=== PATIENT | male | born 1985 | race Caucasian/White ===

== ENCOUNTER 2017-05-14 21:25 | Inpatient (IN) | payer OTHER ==
[~2017-05-14] VITALS: Ht 177.8 cm; Wt 66.5 kg
[2017-05-14 23:05] VITALS: BP 114/82; PULSE 66; RESP 16; TEMP 97.5; O2SAT 97
[2017-05-14] MEDS ORDERED: ACETAMINOPHEN 325 MG TAB PO PRN (23:45)
[2017-05-14] MEDS ORDERED: ALUMINUM/MAGNESIUM/SIMETH 30 ML CUP PO PRN (23:45)
[2017-05-14] MEDS ORDERED: MAGNESIUM HYDROXIDE SUSP 30 ML CUP PO PRN (23:45)
[2017-05-14] MEDS ORDERED: hydrOXYzine HCL 50 MG TAB PO PRN (23:45)
[2017-05-15 05:54] VITALS: BP 114/63; PULSE 72; RESP 18; TEMP 97.6; O2SAT 98
[2017-05-15] MEDS: NICOTINE 21 MG/24 HR PATCH T-DERMAL SCH (09:00)
--- NOTE | 2017-05-15 12:47 | HHI.HP ---
Provisional Diagnosis Admission Date May 14, 2017 at 23:00 [place] I. 1. Brief psychotic disorder Rule out primary psychotic disorder such as schizophrenia Rule out mood disorder with psychotic features Rule out substance-induced psychotic disorder Rule out psychotic disorder due to general medical condition 2. Cannabis abuse [place] II. Deferred Certification of Person's Competence To Provide Express and Informed Consent I have personally examined Homero Guillaume , a person being served at [facility] on, May 15, 2017 12:47. Express and informed consent means consent voluntarily given in writing, by a competent person, after sufficient explanation and disclosure of the subject matter involved to enable the person to make a knowing and willful decision without any element of force, fraud, deceit, duress, or other form of constraint or coercion. This person is 18 years of age or older, is not now known to be incompetent to consent to treatment with a guardian advocate, and does not have a health care surrogate or proxy currently making medical treatment decisions. I have found this person to be one of the following: [] Competent to provide express and informed consent, as defined above, for voluntary admission to this facility and is competent to provide express and informed consent for treatment. He/she has the consistent capacity to make well reasoned, willful, and knowing decisions concerning his or her medical or mental health treatment. The person fully and consistently understands the purpose of the admission for examination/placement and is fully capable of personally exercising all rights assured [place] [x] Incompetent to provide express and informed consent to voluntary admission, and this is incompetent to provide express and informed consent to treatment. The person must be transferred to involuntary status and a petition for a guardian advocate filed with the Circuit Court. [] Refusing to provide express and informed consent to voluntary admission but is competent to provide express and informed consent for treatment. The person must be discharged or transferred to involuntary status. Form shall be completed within 24 hours of a person's arrival at the receiving facility and filed in the clinical record of each person: 1. Admitted on a voluntary basis 2. Permitted to provide express and informed consent to his/her own treatment 3. Allowed to transfer from involuntary to voluntary status 4. Prior to permitting a person to consent to his or her own treatment after having been previously found incompetent to consent to treatment. History of Present Illness Capacity: Lacks Capacity Psych Chief Complaint: Psychosis HPI Mr. Guillaume is a 31-year-old male with a reported history of ADHD who presents in transfer from [facility] under a Pete act. Documentation from outside hospital reviewed. 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 He also allegedly threatened to kill President Charleen. Apparently there was some concern initially that the patient's altered mental status was medical in nature and so it appears he was briefly admitted to the medical floor at [place], although medical workup there was apparently negative. Reviewing our electronic medical record, it appears this is patient's first visit to [place]. Patient seen and examined with nurse. Chart reviewed. Case discussed with nursing staff. On my examination today, the patient presents with pressured speech and loosening of associations. He repeatedly says, "I'm cleared." He says that he has "thought so clear that no one around me could think clearly enough. If you won't think clear, I'll damn you to Hell!" Affect is labile, and patient grows tearful and when asked why he is crying he says. "I'm sad for everybody else. Their pain and suffering at the hands of fucking demons. No one will listen to me." Patient reports visual hallucinations of demons and auditory hallucinations of "henry voices." He cannot tell me what these voices are saying. Grandiosity is present. He is somewhat intrusive and disinhibited. He denies suicidal or homicidal ideation but seems unreliable to contract for safety. The remainder of the psychiatric ROS is negative. The patient has no physical complaints at this time. Past psychiatric history: The patient reports a previous diagnosis of ADHD. He says that he has seen psychiatrists in the past but "they all cleared me." He denies any history of psychiatric admissions or suicide attempts. Given the patient's severely decompensated psychiatric state, I have obtained collateral information from his father Daryl over the phone. Father notes that the patient has been "spiraling" downhill for some time, although it is difficult to quantify exactly how long. He says that the patient has grown increasingly withdrawn and spends most of his time in his room playing video games. Father notes that recently the patient was kicked off of the [employer] site because he was "talking bad." Following that episode the patient "got delusional" and was apparently ruminating on being the greatest game player in the world. Father notes that sleep is poor and the patient has been losing weight. He notes that the patient as fairly apathetic. He notes that the patient has a history in childhood of oppositional defiant disorder and ADHD. There is no family history of mental illness. He reports that the patient has no known history of suicidal or violent behavior. He does note that the patient had a history of some sort of cardiac issue after he was given amoxicillin for strep throat. Father is willing to serve as health care surrogate. Review of Systems ROS Limitations: Psychotic, Poor Historian Except as stated in HPI: all other systems reviewed are Neg Past Psych History Psychological trauma history No reported trauma history to me. Violence risk - others (6 mos) Indeterminate. Patient is psychotic and unpredictable. Violence risk - self (6 mos) Indeterminate. Patient is psychotic and unpredictable. Substance Abuse History Drugs/Alcohol past 12 months Patient admits to regular use of cannabis. He denies any other substance use including synthetics. Past Family Social History Coded Allergies: Amoxicillin (Unverified Allergy, Unknown, 05/15/17) Penicillins (Unverified Allergy, Unknown, 05/15/17) Past Medical History Patient reports a history of congestive heart failure, perhaps alluding to the episodes described by his father above. Current Medications Medications (Trade) Dose Ordered Sig/Jason Route Start Time Stop Time Status Last Admin (Atarax) 50 mg Q6H PRN PO 05/14/17 23:45 (Benadryl) 50 mg HS PRN PO 05/14/17 23:45 (Benadryl Inj) 50 mg HS PRN IM 05/14/17 23:45 (Tylenol) 650 mg Q4H PRN PO 05/14/17 23:45 (Milk Of Magnesia Liq) 30 ml DAILY PRN PO 05/14/17 23:45 (Mag-Al Plus Susp Liq) 30 ml Q6H PRN PO 05/14/17 23:45 (Habitrol 21 Mg Patch.24 Hr) 1 patch DAILY T-DERMAL 05/15/17 09:00 Miscellaneous Information 1 HS T-DERMAL 05/15/17 21:00 Family Psych History Patient denies any family psychiatric history Social History Patient reports that he lives with his parents and 2 pet dogs. He is high school educated. He is single with no children. He does not work. He says that he endeavored to join the but that he was rejected. He denies any legal history. He denies any access to guns or firearms. Patient's Strengths (min. 2) In a monitored setting. Supportive parents. Physical Exam Physical examination was completed by ED provider at outside hospital. On my examination today, the patient appears to be in no acute physical distress. No motor abnormalities noted. Laboratories and vitals signs reviewed: Vital Signs Vital Signs Date Time Temp Pulse Resp B/P (MAP) Pulse Ox O2 Delivery O2 Flow Rate FiO2 05/15/17 05:54 97.6 72 18 114/63 (80) 98 Lab Results Laboratories from outside hospital reviewed: CBC unremarkable, BMP unremarkable , urinalysis revealed 2+ bilirubin and 1+ ketones but otherwise unremarkable, urine toxicology positive for cannabinoids, LFTs within normal limits, head CT within normal limits, chest x-ray no acute cardiopulmonary process, EKG sinus tachycardia with a QTC of 392 ms. Item Value Date Time Sodium Level 140 MEQ/L 05/15/17 1150 Potassium Level 3.6 MEQ/L 05/15/17 1150 Chloride Level 107 MEQ/L 05/15/17 1150 Carbon Dioxide Level 25.7 MEQ/L 05/15/17 1150 Blood Urea Nitrogen 10 MG/DL 05/15/17 1150 Creatinine 0.85 MG/DL 05/15/17 1150 Estimat Glomerular Filtration Rate 107 ML/MIN 05/15/17 1150 Random Glucose 98 MG/DL 05/15/17 1150 Mental Status Examination Appearance: Disheveled Consciousness: Alert Orientation: Person (at least. Psychosis interferes with mental status testing ) Motor Activity: Normal gait Speech: Pressured Language: Perseveration Fund of Knowledge: Adequate Attention and Concentration: Easily Distracted Memory: Unremarkable Mood: Irritable Affect: Labile Thought Process & Associations: Loose associations Thought Content: Bizarre thinking, Hallucinations, Delusional Hallucination Type: Auditory (of henry voices), Visual (of devils) Delusion Type: Other (grandiose with judaism overtones) Suicidal Ideation: No (unreliable to contract for safety) Suicidal Plan: No Suicidal Intention: No Homicidal Ideation: No (unreliable to contract for safety) Homicidal Plan: No Homicidal Intention: No Insight: Poor Judgment: Poor Assessment & Plan Problem List: (1) Brief psychotic disorder ICD Codes: F23 - Brief psychotic disorder (2) Cannabis abuse ICD Codes: F12.10 - Cannabis abuse, uncomplicated Assessment & Plan 31-year-old male with psychiatric history as detailed above who presents in transfer from outside hospital under Pete act. On my examination today, the patient presents as floridly psychotic with audiovisual hallucinations and judaism/grandiose delusions. There does appear to be some degree of affective component and so a mood disorder with psychotic features is in the differential in addition to a primary psychotic disorder. Psychotic disorder due to a substance is certainly a possibility as the patient has been abusing cannabis, and psychosis due to a general medical condition and has not been definitively ruled out. However, father's report of prodromal involution is certainly concerning for an incipient primary psychotic illness. Patient's reported history of cardiac issues will require careful assessment for initiation of an antipsychotic. Patient requires psychiatric hospitalization at this time for safety, observation and stabilization. Admit inpatient. Involuntary status. I've completed first opinion. Consult for second opinion. Request healthcare surrogate and guardian advocate. I will consult the hospitalist to pursue a medical workup of patient's cardiac status to ensure that it is safe to start an antipsychotic medication; case d/w Dr. Clinton. I will check an updated EKG. Check TSH, vitamin D, vitamin B12, RPR, HIV, PASTORA, ESR, MRI brain w/ and w/o contrast as part of first break psychosis workup. Ativan as needed for anxiety, Benadryl as needed for EPS or sleep. Vitals every shift. Counselor to see. Disposition planning. Estimated length of stay: 5-7 days. Discharge Planning Pending psychiatric stabilization Request HC Surrog/Guard Advoc?: Yes David Stoll MD May 15, 2017 12:47
[2017-05-15 13:04] LABS: ANION GAP 7 MEQ/L (5-15); BICARBONATE 25.7 MEQ/L (21.0-32.0); BLOOD UREA NITROGEN 10 MG/DL (7-18); CHLORIDE 107 MEQ/L (98-107); GLOMERULAR FILTRATION RATE 107 ML/MIN (>89); POTASSIUM 3.6 MEQ/L (3.5-5.1); SODIUM (NA) 140 MEQ/L (136-145)
[2017-05-15 13:06] LABS: HDL CHOLESTEROL 41.7 MG/DL (40.0-60.0); LDL CHOLESTEROL 126 MG/DL (0-99)
[2017-05-15 14:28] LABS: HEMOGLOBIN A1a 1.1 %; HEMOGLOBIN A1b 1.5 %; HEMOGLOBIN LA1C 2.1 %; HEMOGLOBIN P3 3.7 %
--- NOTE | 2017-05-15 16:26 | RADRPT ---
EXAM DATE/TIME: 05/15/2017 16:00 [place] COMPARISON: No previous studies available for comparison. INDICATIONS : Psychosis. MEDICAL HISTORY : None. SURGICAL HISTORY : Nose repair. ENCOUNTER: Initial ACUITY: 3 day PAIN SCORE: 0/10 LOCATION: Head. TECHNIQUE: Multiplanar, multisequence MRI of the brain was performed without contrast. FINDINGS: CEREBRUM: The ventricles are normal for age. No evidence of midline shift, mass lesion, hemorrhage or acute in farction. No extraaxial fluid collections are seen. The pituitary gland and suprasellar cistern are normal in configuration. WHITE MATTER: No significant signal abnormalities are seen in the white matter. POSTERIOR FOSSA: The cerebellum and brainstem are intact. The 4th ventricle is midline. The cerebellopontine angle is unremarkable. The cerebellar tonsils are normal in position. DIFFUSION IMAGING: No focal areas of restricted diffusion are seen. No evidence of acute infarction. EXTRACRANIAL: The visualized portions of the orbits and paranasal sinuses are unremarkable. CONCLUSION: 1. No evidence of acute intracranial pathology. No masses are identified. David Garcia MD on May 15, 2017 at 16:23 Board Certified Radiologist. This report was verified electronically.
[2017-05-15 18:09] VITALS: BP 139/86; PULSE 89; RESP 18; TEMP 98; O2SAT 98
--- NOTE | 2017-05-15 18:57 | EKG ---
Date Performed: 05/15/2017 Time Performed: 17:45:37 PTAGE: 31 years EKG: Sinus rhythm MODERATE INTRAVENTRICULAR CONDUCTION DELAY BORDERLINE ECG NO PREVIOUS TRACING DOCTOR: Juan Ramon Walters Interpretating Date/Time 05/15/2017 18:56:26
--- NOTE | 2017-05-15 19:01 | PD.CONS ---
[facility] By [facility] Stoll Reason for Consult Evaluation of patient's claim of history of CHF. Primary Care Physician No Primary Care Physician Diagnoses: History of Present Illness This is a 31-year-old male with reported history of ADHD who presents to [facility] as a transfer from [facility] ([place], [place]) under [employer] act. Documentation from outside hospital was reviewed. 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 He also allegedly threatened to kill braden ames. Apparently there was some concern initially that the patient's altered mental status was medical in nature and it appears that he was briefly admitted to the medical floor at [place], although apparently workup was negative. The patient states that when he was younger he had a strep throat and as a consequence heart failure for which he had a "catheter" placed. Discussed the case with Dr. stoll was requesting a cardiac evaluation given that the catcher's thinking was started on antipsychotic medication. Patient denies any chest pain, shortness of breath, the patient also complains any palpitations, leg edema or weight gain. Patient denies dysuria, abdominal pain, nausea and vomiting. Review of Systems As per history of present illness, other systems reviewed by me and negative Past Family Social History Allergies: Coded Allergies: Penicillins (Unverified Allergy, Unknown, 05/15/17) amoxicillin (Unverified Allergy, Unknown, 05/15/17) Past Medical History ADHD Past Surgical History Nasal repair after a broken nose. Reported Medications None Active Ordered Medications Current Medications Medications (Trade) Dose Ordered Sig/Jason Route Start Time Stop Time Status Last Admin (Benadryl) 50 mg HS PRN PO 05/14/17 23:45 (Benadryl Inj) 50 mg HS PRN IM 05/14/17 23:45 (Tylenol) 650 mg Q4H PRN PO 05/14/17 23:45 (Milk Of Magnesia Liq) 30 ml DAILY PRN PO 05/14/17 23:45 (Mag-Al Plus Susp Liq) 30 ml Q6H PRN PO 05/14/17 23:45 (Habitrol 21 Mg Patch.24 Hr) 1 patch DAILY T-DERMAL 05/15/17 09:00 Miscellaneous Information 1 HS T-DERMAL 05/15/17 21:00 (Ativan) 1 mg Q6H PRN PO 05/15/17 14:15 (Ativan Inj) 1 mg Q6H PRN IM 05/15/17 14:15 Family History The patient's father has some type of kidney issue and they status post kidney transplantation. Patient's mother had hypertension. Social History The patient smokes one pack per day. States he drinks alcohol occasionally. The patient states that he smokes marijuana "24-7" Physical Exam Vital Signs Vital Signs Date Time Temp Pulse Resp B/P (MAP) Pulse Ox O2 Delivery O2 Flow Rate FiO2 05/15/17 18:09 98.0 89 18 139/86 (103) 98 05/15/17 05:54 97.6 72 18 114/63 (80) 98 05/14/17 23:05 97.5 66 16 114/82 (93) 97 Physical Exam GENERAL: This is a well-nourished, well-developed patient, in no apparent distress. SKIN: No rashes, ecchymoses or lesions. Cool and dry. HEAD: Atraumatic. Normocephalic. No temporal or scalp tenderness. EYES: Pupils equal round and reactive. Extraocular motions intact. No scleral icterus. No injection or drainage. ENT: Nose without bleeding, purulent drainage or septal hematoma. Throat without erythema, tonsillar hypertrophy or exudate. Uvula midline. Airway patent. NECK: Trachea midline. No JVD or lymphadenopathy. Supple, nontender, no meningeal signs. CARDIOVASCULAR: Regular rate and rhythm without murmurs, gallops, or rubs. RESPIRATORY: Clear to auscultation. Breath sounds equal bilaterally. No wheezes , rales, or rhonchi. GASTROINTESTINAL: Abdomen soft, non-tender, nondistended. No hepato-splenomegaly , or palpable masses. No guarding. MUSCULOSKELETAL: Extremities without clubbing, cyanosis, or edema. No joint tenderness, effusion, or edema noted. No calf tenderness. Negative Homans sign bilaterally. NEUROLOGICAL: Awake and alert. Cranial nerves II through XII intact. Motor and sensory grossly within normal limits. Five out of 5 muscle strength in all muscle groups. Normal speech. Laboratory Laboratory Tests Test 05/15/17 11:50 Blood Urea Nitrogen 10 Creatinine 0.85 Random Glucose 98 Calcium Level 9.3 Sodium Level 140 Potassium Level 3.6 Chloride Level 107 Carbon Dioxide Level 25.7 Anion Gap 7 Estimat Glomerular Filtration Rate 107 Hemoglobin A1c 5.1 Triglycerides Level 83 Cholesterol Level 184 LDL Cholesterol 126 HDL Cholesterol 41.7 Cholesterol/HDL Ratio 4.41 Result Diagram: 05/15/17 1150 Imaging Last Impressions Brain MRI 05/15/17 0000 Signed Impressions: Service Date/Time: May 16:00 - CONCLUSION: 1. No evidence of acute intracranial pathology. No masses are identified. David Garcia MD Assessment and Plan Problem List: (1) Brief psychotic disorder ICD Code: F23 - Brief psychotic disorder (2) Cannabis abuse ICD Code: F12.10 - Cannabis abuse, uncomplicated (3) Smoking addiction ICD Code: F17.200 - Nicotine dependence, unspecified, uncomplicated Assessment and Plan Patient presents with brief psychotic disorder. Agree with workup for post by psychiatry including MRI which was negative, B12, RPR, HIV, PASTORA, ESR. Continue management upper psychotic disorders as per psychiatry. Advised on smoking cessation. Discussed the case with Dr. Nawaf abebe regarding past history of cardiac disease. Reviewed by me shows sinus rhythm at 79 bpm without any major ST-T changes suggestive of active ischemia. QTC is 394. There is a moderate intraventricular conduction delay. Will order 2-D echocardiogram. Encourage ambulation for DVT prophylaxis. Offered a nicotine patch, however patient refused. Code Status Full code. Discussed Condition With Patient, RN. Idris Michele MD May 15, 2017 19:01
[2017-05-15] MEDS: REMOVE OLD NICOTINE PATCH T-DERMAL SCH ×2 (20:56→21:00)
[2017-05-15] MEDS: diphenhydrAMINE HCL 50 MG/ML VIAL - HS PRN IM (23:24)
[2017-05-15] MEDS: LORazepam 2 MG/ML VIAL IM PRN (23:24)
[2017-05-16 06:16] VITALS: BP 125/69; PULSE 98; RESP 16; TEMP 97.4; O2SAT 99
[2017-05-16] MEDS: NICOTINE 21 MG/24 HR PATCH T-DERMAL SCH (08:09)
--- NOTE | 2017-05-16 11:00 | HHI.PYPN ---
Subjective Chief Complaint: Psychosis Remarks Patient seen and examined with counselor and nurse. Chart reviewed. Case discussed in treatment team. Nursing staff reports that the patient was trying to throw chairs yesterday evening and was medicated with Ativan and Benadryl. On my examination today, the patient is calm but remains psychotic. His affect is labile. His speech remains pressured. He says that he is "here for training to be one of God's disciples." He continues to say he will refuse any medications and says that if we keep him on the unit he will refuse to eat. He tells me that he was just trying to move the chairs, not throw them, although staff assures me that they received in report that he was quite agitated and trying to throw the chairs. No physical complaints. Review of Systems ROS Limitations: Psychotic, Poor Historian Except as stated in HPI: all other systems reviewed are Neg Mental Status Examination Appearance: Disheveled Consciousness: Alert Orientation: Person, Place Motor Activity: Other (no motor abnormalities noted) Speech: Pressured Language: Perseveration Fund of Knowledge: Adequate Attention and Concentration: Easily Distracted Memory: Unremarkable Mood: Irritable Affect: Labile (ongoing) Thought Process & Associations: Loose associations Thought Content: Bizarre thinking, Hallucinations, Delusional Hallucination Type: Other (remains frankly internally stimulated) Delusion Type: Other (grandiose with judaism overtones, ongoing) Suicidal Ideation: No (unreliable to contract for safety) Suicidal Plan: No Suicidal Intention: No Homicidal Ideation: No (unreliable to contract for safety) Homicidal Plan: No Homicidal Intention: No Insight: Poor Judgment: Poor Results Labs Last Impressions Brain MRI 05/15/17 0000 Signed Impressions: Service Date/Time: May 16:00 - CONCLUSION: 1. No evidence of acute intracranial pathology. No masses are identified. David Garcia MD Item Value Date Time Erythrocyte Sedimentation Rate 1 mm/hr 05/16/17 1032 Ammonia 13 MCMOL/L 05/16/17 1032 Vitamin B12 Level 658 PG/ML 05/16/17 1032 Thyroid Stimulating Hormone 3rd Gen 1.280 uIU/ML 05/16/17 1032 HIV (1&2) Antibody NEGATIVE 05/16/17 1032 Labs and studies impressions reviewed. First break psychosis workup so far negative. PASTORA and RPR are still pending. Vitals/IOs Vital Signs Date Time Temp Pulse Resp B/P (MAP) Pulse Ox O2 Delivery O2 Flow Rate FiO2 05/16/17 06:16 97.4 98 16 125/69 (87) 99 Assessment & Plan Problem List: (1) Brief psychotic disorder ICD Codes: F23 - Brief psychotic disorder (2) Cannabis abuse ICD Codes: F12.10 - Cannabis abuse, uncomplicated Assessment & Plan Psychotic state is not improving as time from last substance use increases. I remain concerned for primary psychotic illness or perhaps mood disorder with psychotic features as there does seem to be an affective component to his illness. Awaiting medical clearance/echocardiogram for initiation of an antipsychotic. I will start Depakote DR 500 mg twice daily in the meantime to try to lessen patient's irritability and stabilize his mood, although I fear he will simply refuse this medication. LFTs and platelets were checked at outside hospital and were unremarkable. If the patient does accept this medication, plan to check a Depakote and ammonia level after the appropriate interval. Weekend rounding physician: if medical clearance is obtained, please initiate antipsychotic PO/IM backup. Continue to monitor on high acuity unit. Continue other medications and care as ordered. Justification for Cont. Inpt. Med changes. Impairment in reality construction. Concern for impairment and safety. High risk for decompensation in less restrictive environment. Discharge Planning Pending psychiatric stabilization. Request HC Surrog/Guard Advoc?: Yes David Stoll MD May 16, 2017 11:00
--- NOTE | 2017-05-16 11:45 | PD.PSY.CON ---
Provisional Diagnosis Admission Date May 14, 2017 at 23:00 [place] I. 1. Brief psychotic disorder Rule out primary psychotic disorder such as schizophrenia Rule out mood disorder with psychotic features Rule out substance-induced psychotic disorder Rule out psychotic disorder due to general medical condition 2. Cannabis abuse [place] II. Deferred History of Present Illness Service Psychiatry Consult Requested By Dr. Stoll Reason for Consult second opinion Primary Care Physician No Primary Care Physician HPI Mr. Guillaume is a 31-year-old male with a reported history of ADHD who presents in transfer from [facility] under a Pete act. Documentation from outside hospital reviewed. Patient was brought in initially under a Pete act from [place] [employer] alleging that the patient would speak only of being the world's greatest sas programmer remote. He also allegedly threatened to kill President Cahrleen. Apparently there was some concern initially that the patient's altered mental status was medical in nature and so it appears he was briefly admitted to the medical floor at [place], although medical workup there was apparently negative. Reviewing our electronic medical record, it appears this is patient's first visit to [facility].Patient seen and examined with nurse. Chart reviewed. Case discussed with nursing staff. On my examination today, the patient presents with pressured speech and loosening of associations. He repeatedly says, "I'm cleared." He says that he has "thought so clear that no one around me could think clearly enough. If you won' t think clear, I'll damn you to Hell!" Affect is labile, and patient grows tearful and when asked why he is crying he says. "I'm sad for everybody else. Their pain and suffering at the hands of fucking demons. No one will listen to me." Patient reports visual hallucinations of demons and auditory hallucinations of "henry voices." He cannot tell me what these voices are saying. Grandiosity is present. He is somewhat intrusive and disinhibited. He denies suicidal or homicidal ideation but seems unreliable to contract for safety. The remainder of the psychiatric ROS is negative. The patient has no physical complaints at this time. The patient is a 31 years old man, domiciled with his parents in [place], single, unemployed, with psychiatric history of ADHD, Cannabis use disorder, denies previous psychiatric hospitalizations, denies suicidal attempts , no significant medical history, who was brought to the hospital on the Pete act due to psychotic speech and behavior. He was consulted to me for second opinion. Chart was reviewed. Case discussed with nurse in charge. As per nurses the patient has been agitated, verbally hostile, even aggressive needing ETO's. On my evaluation the patient is found sitting in the recreational area of the unit, he is calm, a little bit oppositional and irritable. He has a very flat affect and seems to be internally preoccupied and paranoid. Patient says that he needs to remain silence and isolated "because he wants to attack me ". Patient does not clarify who is "he". He also says that "He is mandating". Patient says that he has been smoking that he wanted everyday "to clear my mind". He also says that he voted for "the best president ever, Michael Villaseñor who is cleaning this [place] of [employer]". The patient denies suicidal and homicidal ideation, visual and auditory hallucinations. He is partially oriented in time and place. Review of Systems Psychiatric: COMPLAINS OF: Delusions Except as stated in HPI: all other systems reviewed are Neg Past Family Social History Coded Allergies: Penicillins (Unverified Allergy, Unknown, 05/15/17) amoxicillin (Unverified Allergy, Unknown, 05/15/17) Current Medications Medications (Trade) Dose Ordered Sig/Jason Route Start Time Stop Time Status Last Admin (Benadryl) 50 mg HS PRN PO 05/14/17 23:45 (Benadryl Inj) 50 mg HS PRN IM 05/14/17 23:45 05/15/17 23:24 (Tylenol) 650 mg Q4H PRN PO 05/14/17 23:45 (Milk Of Magnesia Liq) 30 ml DAILY PRN PO 05/14/17 23:45 (Mag-Al Plus Susp Liq) 30 ml Q6H PRN PO 05/14/17 23:45 (Habitrol 21 Mg Patch.24 Hr) 1 patch DAILY T-DERMAL 05/15/17 09:00 Miscellaneous Information 1 HS T-DERMAL 05/15/17 21:00 (Ativan) 1 mg Q6H PRN PO 05/15/17 14:15 (Ativan Inj) 1 mg Q6H PRN IM 05/15/17 14:15 05/15/17 23:24 Family Psych History Patient says that his uncle "has Alzheimer's disease Social History Patient was born and raised in [place], lives [place] with his parents, he is unemployed, single, his highest level of education is high school Patient's Strengths (min. 2) In a monitored setting. Supportive parents. Physical Exam Vital Signs Vital Signs Date Time Temp Pulse Resp B/P (MAP) Pulse Ox O2 Delivery O2 Flow Rate FiO2 05/16/17 06:16 97.4 98 16 125/69 (87) 99 Lab Results Test 05/15/17 11:50 05/16/17 10:32 Blood Urea Nitrogen 10 MG/DL Creatinine 0.85 MG/DL Random Glucose 98 MG/DL Calcium Level 9.3 MG/DL Sodium Level 140 MEQ/L Potassium Level 3.6 MEQ/L Chloride Level 107 MEQ/L Carbon Dioxide Level 25.7 MEQ/L Anion Gap 7 MEQ/L Estimat Glomerular Filtration Rate 107 ML/MIN Hemoglobin A1c 5.1 % Triglycerides Level 83 MG/DL Cholesterol Level 184 MG/DL LDL Cholesterol 126 MG/DL HDL Cholesterol 41.7 MG/DL Cholesterol/HDL Ratio 4.41 RATIO Ammonia 13 MCMOL/L Mental Status Examination Appearance: Disheveled Consciousness: Alert Orientation: Person (at least. Psychosis interferes with mental status testing ) Motor Activity: Normal gait Speech: Pressured Language: Perseveration Fund of Knowledge: Adequate Attention and Concentration: Easily Distracted Memory: Unremarkable Mood: Irritable Affect: Labile Thought Process & Associations: Loose associations Thought Content: Bizarre thinking, Hallucinations, Delusional Hallucination Type: Auditory (of henry voices), Visual (of devils) Delusion Type: Other (grandiose with jain overtones) Suicidal Ideation: No (unreliable to contract for safety) Suicidal Plan: No Suicidal Intention: No Homicidal Ideation: No (unreliable to contract for safety) Homicidal Plan: No Homicidal Intention: No Insight: Poor Judgment: Poor Assessment & Plan Problem List: (1) Brief psychotic disorder ICD Codes: F23 - Brief psychotic disorder Assessment & Plan: I have seen and examined this patient, reviewed documentation. Discussed the case with nursing charge. I completely agree with Dr. Stoll assessment and plan. Consult appreciated. (2) Cannabis abuse ICD Codes: F12.10 - Cannabis abuse, uncomplicated Assessment & Plan Estimated LOS: days Request HC Surrog/Guard Advoc?: Yes Surednra Stringer MD May 16, 2017 11:45
--- NOTE | 2017-05-16 12:06 | PD.TTN ---
Patient Problems 1. Discharge planning 2. Medication compliance 3. Knowledge deficit 4. Lack of coping skills Progress Toward Goals Provider Present: Dr. Jocelyn Stoll Provider Input: Pt will be evaluated medically and will have first psychotic break work up. An antipsychotic will be added once he has been medically evaluated as well. Psychiatric Counselors Present: NELSON Israel Psych Therapist Input: Pt appears labile, delusional, religiously preoccupied, uncooperative and disorganized. Pt struggles to remain on topic and expresses delusional content. He has been compliant with medication regiment but reports he does not feel that he needs to be. He presents with limited insight into condition and need for care as he does not feel he has any mental illlness. Coping and emotional regulation skills appear limited at this time. Group Spec/RT/OT/NEGRETE Present: PENELOPE Ott Group Spec/RT/OT/NEGRETE Input: Pt came to spirituality group yesterday but was unable to tolerate and appeared labile. Discharge Plan SMA Discharge plan will be evaluated and formulated as pt progresses on unit. Documentation Scribe: NELSON Israel Jonathan LMHC May 16, 2017 12:06
--- NOTE | 2017-05-16 17:30 | HHI.PR ---
Subjective Remarks as per RN patietn has been very emotional. Asking to be discharged. Denies cp/sob. c/o left wrist pain. Objective Vitals Vital Signs Date Time Temp Pulse Resp B/P (MAP) Pulse Ox O2 Delivery O2 Flow Rate FiO2 05/16/17 06:16 97.4 98 16 125/69 (87) 99 05/15/17 18:09 98.0 89 18 139/86 (103) 98 Result Diagram: 05/15/17 1150 Imaging Last Impressions Brain MRI 05/15/17 0000 Signed Impressions: Service Date/Time: May 16:00 - CONCLUSION: 1. No evidence of acute intracranial pathology. No masses are identified. David Garcia MD Objective Remarks GENERAL: This is a well-nourished, well-developed patient, in no apparent distress. SKIN: No rashes, ecchymoses or lesions. Cool and dry. HEAD: Atraumatic. Normocephalic. No temporal or scalp tenderness. EYES: Pupils equal round and reactive. Extraocular motions intact. No scleral icterus. No injection or drainage. ENT: Nose without bleeding, purulent drainage or septal hematoma. Throat without erythema, tonsillar hypertrophy or exudate. Uvula midline. Airway patent. NECK: Trachea midline. No JVD or lymphadenopathy. Supple, nontender, no meningeal signs. CARDIOVASCULAR: Regular rate and rhythm without murmurs, gallops, or rubs. RESPIRATORY: Clear to auscultation. Breath sounds equal bilaterally. No wheezes , rales, or rhonchi. GASTROINTESTINAL: Abdomen soft, non-tender, nondistended. No hepato-splenomegaly , or palpable masses. No guarding. MUSCULOSKELETAL: Extremities without clubbing, cyanosis, or edema. No joint tenderness, effusion, or edema noted. No calf tenderness. Negative Homans sign bilaterally. Mild left wrist tenderness to palpation. NEUROLOGICAL: Awake and alert. Cranial nerves II through XII intact. Motor and sensory grossly within normal limits. Five out of 5 muscle strength in all muscle groups. Normal speech. Medications and IVs Current Medications Medications (Trade) Dose Ordered Sig/Jason Route Start Time Stop Time Status Last Admin (Benadryl) 50 mg HS PRN PO 05/14/17 23:45 (Benadryl Inj) 50 mg HS PRN IM 05/14/17 23:45 05/15/17 23:24 (Tylenol) 650 mg Q4H PRN PO 05/14/17 23:45 (Milk Of Magnesia Liq) 30 ml DAILY PRN PO 05/14/17 23:45 (Mag-Al Plus Susp Liq) 30 ml Q6H PRN PO 05/14/17 23:45 (Habitrol 21 Mg Patch.24 Hr) 1 patch DAILY T-DERMAL 05/15/17 09:00 Miscellaneous Information 1 HS T-DERMAL 05/15/17 21:00 (Ativan) 1 mg Q6H PRN PO 05/15/17 14:15 (Ativan Inj) 1 mg Q6H PRN IM 05/15/17 14:15 05/15/17 23:24 (Depakote Dr) 500 mg BID PO 05/16/17 21:00 A/P Problem List: (1) Brief psychotic disorder ICD Code: F23 - Brief psychotic disorder (2) Cannabis abuse ICD Code: F12.10 - Cannabis abuse, uncomplicated (3) Smoking addiction ICD Code: F17.200 - Nicotine dependence, unspecified, uncomplicated (4) Left wrist pain ICD Code: M25.532 - Pain in left wrist Plan: Patient states had to be held after he became unruly. There is no major tendernes on palpation, if pain worsens or is persistent an x ray of the wrist is warranted. Assessment and Plan Patient presents with brief psychotic disorder. Agree with workup for post by psychiatry including MRI which was negative, B12, RPR, HIV, PASTORA, ESR. MRI negative, HIV 1 and 2 antibody negative, RPR pending, TSH, B12 normal, ESR normal PASTORA screen pending. Continue management upper psychotic disorders as per psychiatry. Advised on smoking cessation. Discussed the case with Dr. Stoll regarding past history of cardiac disease. EKG reviewed by me shows sinus rhythm at 79 bpm without any major ST-T changes suggestive of active ischemia. QTC is 394. There is a moderate intraventricular conduction delay. 2D echocardiogram shows a left ventricle systolic function which is mildly reduced with an estimated ejection fraction 45-50%. There is global left ventricular dysfunction. We'll consult cardiology for further recommendations. Encourage ambulation for DVT prophylaxis. Offered a nicotine patch, however patient refused. Discharge Planning Cardiology consult placed. Idris Thomas MD May 16, 2017 17:30
[2017-05-16 18:00] VITALS: BP 147/85; PULSE 91; RESP 18; TEMP 98.2; O2SAT 99
--- NOTE | 2017-05-16 18:03 | ECHRPT ---
Indication: HEART FAILURE CONCLUSIONS The left ventricular systolic function is mildly reduced with an estimated ejection fraction in the range of 45- 50%. There is global left ventricular dysfunction. Trace mitral valve regurgitation. There is mild tricuspid valve regurgitation. BP: 139 / 86 HR: 98 Rhythm: Sinus MEASUREMENTS (Male / Female) Normal Values Technical Quality:Fair 2D ECHO LVOT Diameter 2.1 cm Aortic Root Diameter 3.2 cm M-MODE AV Cusp Separation MM 1.8 cm DOPPLER AV Peak Velocity 101.0 cm/s AV Peak Gradient 4.1 mmHg AV Mean Gradient 2.0 mmHg AV Velocity Time Integral 14.2 cm LVOT Peak Velocity 81.2 cm/s LVOT Peak Gradient 2.6 mmHg LVOT Velocity Time Integral 10.2 cm AV Area Cont Eq vti 2.5 cm AV Area Cont Eq pk 2.8 cm Mitral E Point Velocity 73.5 cm/s Mitral A Point Velocity 71.6 cm/s Mitral E to A Ratio 1.0 LV E' Lateral Velocity 12.1 cm/s Mitral E to LV E' Lateral Ratio 6.1 LV E' Septal Velocity 9.8 cm/s Mitral E to LV E' Septal Ratio 7.5 TR Peak Velocity 221.0 cm/s TR Peak Gradient 19.5 mmHg Right Atrial Pressure 10.0 mmHg Pulmonary Artery Systolic Pressu 29.5 mmHg Right Ventricular Systolic Press 29.5 mmHg PV Peak Velocity 75.9 cm/s PV Peak Gradient 2.3 mmHg FINDINGS LEFT VENTRICLE Normal left ventricular size. Wall thickness is normal. The left ventricular systolic function is mildly reduced with an estimated ejection fraction in the range of 45- 50%. There is global left ventricular dysfunction. RIGHT VENTRICLE Normal right ventricular size and systolic function. LEFT ATRIUM The left atrial size is normal. RIGHT ATRIUM The right atrial size is normal. ATRIAL SEPTUM Normal atrial septal thickness. AORTA The aortic root and proximal ascending aorta are normal in size on limited imaging. MITRAL VALVE Structurally normal mitral valve. No mitral valve stenosis. Trace mitral valve regurgitation. AORTIC VALVE Trileaflet aortic valve. No aortic valve stenosis or regurgitation. TRICUSPID VALVE Structurally normal tricuspid valve. There is mild tricuspid valve regurgitation. The estimated pulmonary arterial pressure is 29.5 mmHg. PULMONARY VALVE No pulmonary valve regurgitation or stenosis. VESSELS The inferior vena cava is normal in size. PERICARDIUM No pericardial effusion. Khurram Jc DO (Electronically Signed) Final Date:16 May 2017 18:02
[2017-05-16] MEDS: DIVALPROEX DR 500 MG TABEC PO SCH ×2 (20:59→21:00)
[2017-05-16] MEDS: REMOVE OLD NICOTINE PATCH T-DERMAL SCH (21:00)
[2017-05-16] MEDS: LORazepam 2 MG/ML VIAL IM PRN (22:19)
[2017-05-16] MEDS: diphenhydrAMINE HCL 50 MG/ML VIAL - HS PRN IM (22:19)
[2017-05-17 06:00] VITALS: BP 118/76; PULSE 108; RESP 18; TEMP 98; O2SAT 99
[2017-05-17] MEDS: DIVALPROEX DR 500 MG TABEC PO SCH ×3 (08:54→20:34)
[2017-05-17] MEDS: NICOTINE 21 MG/24 HR PATCH T-DERMAL SCH (08:55)
[2017-05-17] MEDS ORDERED: OLANZapine IM 10 MG VIAL IM ONE (16:03)
--- NOTE | 2017-05-17 16:26 | HHI.PYPN ---
Subjective Chief Complaint: Psychosis Remarks Patient was seen and case discussed with nursing. Progress note reviewed from yesterday. He was cleared by cardiology this morning per Nursing from Dr. Jc. Patient is compliant with his Depakote and is tolerating it well. He has not thrown any chairs but remains psychotic and very perseverative. What I told him he is here partly because he made a statement that he wanted to kill Michael [place] he became angry and loud that he would make such an accusation for "the best president ever." He received an eto of zyprexa Mental Status Examination Appearance: Disheveled Consciousness: Alert Orientation: Person, Place Motor Activity: Other (no motor abnormalities noted) Speech: Pressured Language: Perseveration Fund of Knowledge: Adequate Attention and Concentration: Easily Distracted Memory: Unremarkable Mood: Irritable Affect: Labile (ongoing) Thought Process & Associations: Loose associations Thought Content: Bizarre thinking, Hallucinations, Delusional Hallucination Type: Other (remains frankly internally stimulated) Delusion Type: Other (grandiose with samaritan overtones, ongoing) Suicidal Ideation: No (unreliable to contract for safety) Suicidal Plan: No Suicidal Intention: No Homicidal Ideation: No (unreliable to contract for safety) Homicidal Plan: No Homicidal Intention: No Insight: Poor Judgment: Poor Results Vitals/IOs Vital Signs Date Time Temp Pulse Resp B/P (MAP) Pulse Ox O2 Delivery O2 Flow Rate FiO2 05/17/17 06:00 98.0 108 18 118/76 (90) 99 Assessment & Plan Problem List: (1) Brief psychotic disorder ICD Codes: F23 - Brief psychotic disorder (2) Cannabis abuse ICD Codes: F12.10 - Cannabis abuse, uncomplicated Assessment & Plan Add Zyprexa 5 mg by mouth twice a day Justification for Cont. Inpt. Patient would decompensate in a less restrictive setting Request HC Surrog/Guard Advoc?: Yes Jewel Gr DO May 17, 2017 16:26
--- NOTE | 2017-05-17 18:04 | MB ---
cc: KHURRAM FULLER DO DATE OF CONSULTATION: 05/17/2017. History of congestive heart failure. HISTORY OF PRESENT ILLNESS: Homero Guillaume is a 31-year-old who presented to the [facility] on May 14, 2017 under the Pete Act. Apparently the patient was originally He also apparently at the [employer] alleging that he would speak only to the world's greatest retirement village manager. He also apparently threatened to kill President Charleen. He has since been admitted to the psychiatric [facility] for further management. The patient states that when he was younger he had strep throat and believes that he had a heart failure due to this, which may be a viral cardiomyopathy, but I am unsure at this time. After this, he states that he no longer trusts doctors and currently does not trust the current doctors taking care of him as he believes he is smarter than everyone. He currently denies any symptoms of chest pain, shortness of breath. On seeing him he is currently lying flat with no trouble breathing. PAST MEDICAL HISTORY: 1. ADHD. 2. 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 PAST SURGICAL HISTORY: 1. Nasal repair after a broken nose. ALLERGIES: 1. PENICILLIN. 2. AMOXICILLIN. MEDICATIONS: Denies. FAMILY HISTORY: Denies premature coronary artery disease or sudden cardiac within the family. SOCIAL HISTORY: The patient smokes one pack of cigarettes a day. He drinks alcohol occasionally. He states that he smokes marijuana 30/12. REVIEW OF SYSTEMS: Fourteen systems were reviewed including osteopathic with pertinent positives and negatives as above; otherwise negative. PHYSICAL EXAMINATION: VITAL SIGNS: Temperature 97.4, heart rate 98, blood pressure 125/69, respirations 16, pulse ox 99% on room air. GENERAL: In general the patient appears well but possibly in a manic phase. No acute distress. Alert awake. HEAD, EYES, EARS, NOSE, THROAT: Extraocular muscles intact. Mucous membranes moist. NECK: The neck is supple. No JVD at 45 degrees. No carotid bruits heard bilaterally. Carotid upstroke is brisk in nature. HEART: Regular rate and rhythm. Positive first and second heart sounds with no murmurs, gallops or rubs. LUNGS: Clear to auscultation bilaterally. No wheezes, rales or rhonchi. ABDOMEN: The abdomen is soft, nontender and nondistended. No organomegaly noted. EXTREMITIES: No clubbing, cyanosis or edema. Femoral and distal pulses are intact bilaterally. NEUROLOGIC: No focal deficits. SKIN: Warm, dry and intact. OSTEOPATHIC: Osteopathically, no kyphoscoliosis, lordosis or paraspinal tender points. LABORATORY WORK: Potassium 3.6, BUN 10, creatinine 0.85. Electrocardiogram (May 15, 2017 at 1745): Sinus rhythm, moderate interventricular conduction delay. Echocardiogram (May 16, 2017): Ejection fraction 40-45%, trace mitral regurgitation, mild tricuspid regurgitation. IMPRESSION: 1. Psychotic disorder unknown underlying cause. 2. 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 3. Ejection fraction of 45-50% by echocardiogram (May 16, 2017) 4. Tobacco abuse. 5. Marijuana abuse. RECOMMENDATIONS: 1. Mr. Guillaume may have had viral cardiomyopathy when he was younger after a bout with strep throat. 2. Unsure of previous ejection fraction but currently 45-50% showing a mild cardiomyopathy. 3. As far as his cardiomyopathy, he will be started on medical management with Coreg initially. If blood pressure is stable after starting Coreg, consideration could be made for lisinopril. 4. I will see him on an as-needed basis. If there are any questions, please do not hesitate to call. Khurram Fuller DO [facility] /5:31 PM /5:49 PM
[2017-05-17] MEDS: REMOVE OLD NICOTINE PATCH T-DERMAL SCH (20:26)
[2017-05-17] MEDS: LORazepam 1 MG TAB PO PRN ×2 (20:26→20:34)
[2017-05-17] MEDS: OLANZapine 5 MG TAB PO SCH ×2 (20:26→20:34)
[2017-05-17] MEDS: diphenhydrAMINE HCL 50 MG CAP - HS PRN PO ×2 (20:26→20:34)
[2017-05-17] MEDS: CARVEDILOL 3.125 MG TAB PO SCH ×2 (20:27→20:34)
[2017-05-18 06:15] VITALS: BP 119/58; PULSE 99; RESP 17; TEMP 97.1; O2SAT 95
[2017-05-18] MEDS: CARVEDILOL 3.125 MG TAB PO SCH ×2 (08:42→20:03)
[2017-05-18] MEDS: DIVALPROEX DR 500 MG TABEC PO SCH ×2 (08:43→20:03)
[2017-05-18] MEDS: NICOTINE 21 MG/24 HR PATCH T-DERMAL SCH (08:44)
[2017-05-18] MEDS: OLANZapine 5 MG TAB PO SCH ×2 (08:44→20:03)
[2017-05-18] MEDS ORDERED: HALOPERIDOL LACTATE 5 MG/ML AMP ONE (09:33)
[2017-05-18] MEDS ORDERED: HALOPERIDOL LACTATE 5 MG/ML AMP IM ONE (09:45)
[2017-05-18] MEDS ORDERED: LORazepam 2 MG/ML VIAL IM ONE (09:45)
--- NOTE | 2017-05-18 16:40 | HHI.PYPN ---
Subjective Chief Complaint: Psychosis Remarks Patient was seen and case was discussed with nursing. Patient is able to keep it together for my interview but throughout the day he continued to be aggressive or agitated. He was loud yelling this morning slamming on the wright and received an ETO of Haldol. Spending most of the day in seclusion today. His chief complaint today is left wrist pain which he thinks could be broken. Remains grossly psychotic and disorganized. He is refusing his medications today and was told IM backup of Zyprexa would be added for his second dose Mental Status Examination Appearance: Disheveled Consciousness: Alert Orientation: Person, Place Motor Activity: Other (no motor abnormalities noted) Speech: Pressured Language: Perseveration Fund of Knowledge: Adequate Attention and Concentration: Easily Distracted Memory: Unremarkable Mood: Angry, Oppositional, Irritable Affect: Labile (ongoing) Thought Process & Associations: Loose associations Thought Content: Bizarre thinking, Hallucinations, Delusional Hallucination Type: Other (remains frankly internally stimulated) Delusion Type: Other (grandiose with yazidi overtones, ongoing) Suicidal Ideation: No (unreliable to contract for safety) Suicidal Plan: No Suicidal Intention: No Homicidal Ideation: No (unreliable to contract for safety) Homicidal Plan: No Homicidal Intention: No Insight: Poor Judgment: Poor Results Vitals/IOs Vital Signs Date Time Temp Pulse Resp B/P (MAP) Pulse Ox O2 Delivery O2 Flow Rate FiO2 05/18/17 06:15 97.1 99 17 119/58 (78) 95 Assessment & Plan Problem List: (1) Brief psychotic disorder ICD Codes: F23 - Brief psychotic disorder (2) Cannabis abuse ICD Codes: F12.10 - Cannabis abuse, uncomplicated Assessment & Plan Add IM Zyprexa Justification for Cont. Inpt. Patient would decompensate in a less restrictive setting Request HC Surrog/Guard Advoc?: Yes Jewel Gr DO May 18, 2017 16:40
[2017-05-18] MEDS ORDERED: OLANZapine IM 10 MG VIAL IM ONE ×2 (16:44→17:00)
[2017-05-18 17:15] VITALS: BP 125/60; PULSE 76; RESP 18; TEMP 97.9; O2SAT 100
[2017-05-18] MEDS: REMOVE OLD NICOTINE PATCH T-DERMAL SCH (20:03)
[2017-05-18] MEDS ORDERED: OLANZapine IM 10 MG VIAL IM SCH (21:00)
--- NOTE | 2017-05-18 21:48 | RADRPT ---
EXAM DATE/TIME: 05/18/2017 21:31 [place] COMPARISON: No previous studies available for comparison. INDICATIONS : Left wrist pain, injured while being restrainted MEDICAL HISTORY : None. SURGICAL HISTORY : None. ENCOUNTER: Initial ACUITY: 3 days PAIN SCORE: 8/10 LOCATION: Left Wrist FINDINGS: Two view examination of the left wrist demonstrates no soft tissue swelling, dislocation, or fracture . The joint spaces are maintained. Bony mineralization is normal. CONCLUSION: No acute disease. Thomas Shepard MD on May 18, 2017 at 21:47 Board Certified Radiologist. This report was verified electronically.
[2017-05-19 05:38] VITALS: BP 115/63; PULSE 72; RESP 17; TEMP 97.5; O2SAT 99
--- NOTE | 2017-05-19 08:39 | HHI.PYPN ---
Subjective Chief Complaint: Psychosis Remarks Patient seen and examined with nurse. Chart reviewed. Case discussed with nursing staff who reports that the patient has been angry, belligerent and demeaning towards staff. He also was apparently banging his hands on the wall and a wrist x-ray was ordered. On my examination today, the patient psychotic. His affect remains labile. He is intrusive with other patients. He expresses anger that the [place] act alleged that he threatened violence towards the president because "Charleen is my favorite President of all time!" He remains religiously preoccupied and notes "I am the henry voice, I believe." He also tells me, "I understand infrared." He says that this is why it is cold on the unit. He says that he has no intention of taking medications after discharge, although he denies side effects from medications he is currently receiving. No physical complaints. Reached out to patient's parents/HCS to discuss patient's case. Patient has apparently been calling parents repeatedly and making hurtful comments about parent's decision to have patient Juan R Acted and their actions as HCS. Looking at the totality of the case, I think an in-person consultation with parents is appropriate and have scheduled a meeting for 07:15 tomorrow morning. Review of Systems ROS Limitations: Psychotic, Poor Historian Except as stated in HPI: all other systems reviewed are Neg Mental Status Examination Appearance: Disheveled Consciousness: Alert Orientation: Person, Place Motor Activity: Other (no abnormal motor movements noted) Speech: Pressured Language: Perseveration Fund of Knowledge: Adequate Attention and Concentration: Easily Distracted Memory: Unremarkable Mood: Oppositional, Irritable, Other (dysphoric) Affect: Labile Thought Process & Associations: Loose associations Thought Content: Bizarre thinking, Hallucinations, Delusional Hallucination Type: Other (internally stimulated) Delusion Type: Other (church/grandiose) Suicidal Ideation: No (unreliable to contract for safety) Suicidal Plan: No Suicidal Intention: No Homicidal Ideation: No (unreliable to contract for safety) Homicidal Plan: No Homicidal Intention: No Insight: Poor Judgment: Poor Results Labs Laboratories reviewed. These are unrevealing for organic causes of current symptoms, although PASTORA and vitamin D level are pending. Last Impressions Wrist X-Ray 05/18/[id number] Signed Impressions: Service Date/Time: Thursday, May 18, 2017 21:31 - CONCLUSION: No acute disease. Thomas Shepard MD Brain MRI 05/15/17 0000 Signed Impressions: Service Date/Time: May 16:00 - CONCLUSION: 1. No evidence of acute intracranial pathology. No masses are identified. David Garcia MD Vitals/IOs Vital Signs Date Time Temp Pulse Resp B/P (MAP) Pulse Ox O2 Delivery O2 Flow Rate FiO2 05/19/17 05:38 97.5 72 17 115/63 (80) 99 Assessment & Plan Problem List: (1) Brief psychotic disorder ICD Codes: F23 - Brief psychotic disorder (2) Cannabis abuse ICD Codes: F12.10 - Cannabis abuse, uncomplicated Assessment & Plan Given that patient has said he will not take medications after discharge, I think it makes sense to try to switch antipsychotic to an agent with a more readily available long-acting injectable. D/c oral Zyprexa and offer Abilify 15mg daily. I will keep Zyprexa IM backup should patient refuse oral antipsychotic. Adherence with Depakote has been spotty at best, and so it makes no sense to order a level at this time. To consider discontinuing Depakote entirely and proceeding with antipsychotic monotherapy. Continue to monitor on the high acuity unit. Continue other medications and care as ordered. Justification for Cont. Inpt. Med changes. Impairment in reality construction. Risk for decompensation in less restrictive environment. Discharge Planning Pending psychiatric stabilization. Request HC Surrog/Guard Advoc?: Yes David Stoll MD May 19, 2017 08:39
[2017-05-19] MEDS: ARIPiprazole 15 MG TAB PO SCH ×2 (09:00→09:11)
[2017-05-19] MEDS ORDERED: OLANZapine IM 10 MG VIAL IM PRN (09:00)
[2017-05-19] MEDS: DIVALPROEX DR 500 MG TABEC PO SCH ×3 (09:00→21:00)
[2017-05-19] MEDS: NICOTINE 21 MG/24 HR PATCH T-DERMAL SCH (09:00)
[2017-05-19] MEDS: CARVEDILOL 3.125 MG TAB PO SCH ×2 (09:10→21:04)
[2017-05-19 16:55] LABS: ANA SCREEN NEG (NEG)
[2017-05-19 18:45] VITALS: BP 122/64; PULSE 71; RESP 18; TEMP 97.9; O2SAT 100
[2017-05-19] MEDS: REMOVE OLD NICOTINE PATCH T-DERMAL SCH (21:00)
[2017-05-19] MEDS: diphenhydrAMINE HCL 50 MG CAP - HS PRN PO (21:36)
[2017-05-19] MEDS: LORazepam 1 MG TAB PO PRN (22:35)
[2017-05-20 05:46] VITALS: BP 123/79; PULSE 60; RESP 18; TEMP 97.7; O2SAT 100
[2017-05-20] MEDS: CARVEDILOL 3.125 MG TAB PO SCH ×2 (07:55→20:25)
[2017-05-20] MEDS: DIVALPROEX DR 500 MG TABEC PO SCH ×2 (07:55→20:25)
[2017-05-20] MEDS: NICOTINE 21 MG/24 HR PATCH T-DERMAL SCH (08:02)
[2017-05-20] MEDS: ARIPiprazole 15 MG TAB PO SCH (08:02)
[2017-05-20] MEDS ORDERED: HALOPERIDOL LACTATE 5 MG/ML AMP ONE (09:35)
--- NOTE | 2017-05-20 09:36 | HHI.PYPN ---
Subjective Chief Complaint: Psychosis Remarks Patient seen and examined with nurse. Chart reviewed. Case discussed in treatment team. Per nursing staff, patient remains quite grandiose. On my examination today, the patient resents with pressured speech. He is irritable and castigates staff in particular without apparent cause. He now tries to minimize his presenting AVH, saying instead that "I was talking to people on a video-game." Mood is "good" but affect is still labile. He denies suicidal or homicidal ideation but remains unreliable to contract for safety. He denies side effects from medications. I tried to discuss with him the content of meeting with patient's parents, below, but patient becomes increasingly agitated. He is attention-seeking and volatile. Following my interview the patient kicks a chair and is acting out in the day room. I ordered him medicated with Haldol, Ativan and Benadryl ETO. A short time later, patient tries to pull the phone cord off the phone while hurling invective at treatment team. He was placed in locked seclusion at my order, and I was present at the initiation of locked seclusion. Denies side effects from medications. No physical complaints besides dry throat, requesting lozenges. Extensive in-person meeting with patient's mother and father, who are serving as healthcare surrogate for the patient. A total of ~40 min were spent in consultation with parents. We discuss differential diagnosis and progress on the unit. We discuss workup for medical causes of psychosis. We discuss pharmacotherapeutic treatment options for patient's condition. Parents express skepticism about the patient accepting medication outside of the hospital. We discussed long-acting injectable antipsychotics. We discuss need for an agent with oral, short-acting IM, and long-acting IM formulations, which essentially leaves us with Prolixin and Haldol. I reviewed the side effect profile of atypical and typical antipsychotics, including discussion of the potential metabolic side effects, the movement disorder side effects, and the potentially side effects of tardive dyskinesia and neuroleptic malignant syndrome. We discussed patient's legal status and the [place] court hearing scheduled for this . We discussed long-term planning for patient's case. All of parents questions answered. Review of Systems ROS Limitations: Psychotic, Poor Historian Except as stated in HPI: all other systems reviewed are Neg Mental Status Examination Appearance: Disheveled Consciousness: Alert, Vigilant Orientation: Person, Place Motor Activity: Other (no abnormal motor movements noted) Speech: Pressured Language: Perseveration Fund of Knowledge: Adequate Attention and Concentration: Easily Distracted Memory: Unremarkable Mood: Angry, Oppositional, Irritable Affect: Labile Thought Process & Associations: Loose associations Thought Content: Bizarre thinking, Hallucinations, Delusional Hallucination Type: Other (internally stimulated) Delusion Type: Other (voodoo/grandiose, ongoing) Suicidal Ideation: No (unreliable to contract for safety) Homicidal Ideation: No (unreliable to contract for safety) Insight: Poor Judgment: Poor Results Labs Labs reviewed. All first break psychosis laboratories have resulted without clinically relevant laboratory abnormalities. Vitals/IOs Vital Signs Date Time Temp Pulse Resp B/P (MAP) Pulse Ox O2 Delivery O2 Flow Rate FiO2 05/20/17 05:46 97.7 60 18 123/79 (94) 100 Intake and Output 05/20/17 05/20/17 05/21/17 08:00 16:00 00:00 Intake Total 480 ml Balance 480 ml Assessment & Plan Problem List: (1) Brief psychotic disorder ICD Codes: F23 - Brief psychotic disorder (2) Cannabis abuse ICD Codes: F12.10 - Cannabis abuse, uncomplicated Assessment & Plan D/c Abilify/Zyprexa and start Haldol 10mg BID PO/IM backup. Plan for long- acting injectable antipsychotic. Continue to try to offer Depakote as I do think the patient could benefit from mood stabilizing effect of this medication , although adherence has been spotty at best. D/c locked seclusion once safe to do so. Hospitalist input noted and appreciated. Continue to monitor on high acuity unit. Continue other medications and care as ordered. Justification for Cont. Inpt. Med changes. Impairment in reality construction. Impairment in safety. High risk for decompensation in less restrictive environment. Discharge Planning Pending psychiatric stabilization. Request HC Surrog/Guard Advoc?: Yes David Stoll MD May 20, 2017 09:35
[2017-05-20] MEDS ORDERED: diphenhydrAMINE HCL 50 MG/ML VIAL IM STA (09:44)
[2017-05-20] MEDS ORDERED: HALOPERIDOL LACTATE 5 MG/ML AMP IM STA (09:45)
[2017-05-20] MEDS ORDERED: LORazepam 2 MG/ML VIAL IM STA (09:46)
[2017-05-20] MEDS ORDERED: HALOPERIDOL LACTATE 5 MG/ML AMP IM PRN (10:15)
[2017-05-20] MEDS ORDERED: CARV3.125 PO (10:26)
[2017-05-20] MEDS ORDERED: LISI-519 PO (10:26)
--- NOTE | 2017-05-20 10:52 | HHI.PR ---
Subjective Remarks PASTORA and RPR have resulted and are within normal limits. No signs of history of syphilis or lupus. 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 CHF is present but mild. Beta shivam had been started for chronic use and blood pressures are sustaining so a low dose Juan inhibitors is added to use chronically. At this point no further workup or treatments are recommended. Will sign off today. Objective Vital Signs Date Time Temp Pulse Resp B/P (MAP) Pulse Ox O2 Delivery O2 Flow Rate FiO2 05/20/17 05:46 97.7 60 18 123/79 (94) 100 05/19/17 18:45 97.9 71 18 122/64 (83) 100 I/O 05/19/17 05/19/17 05/19/17 05/20/17 05/20/17 05/20/17 07:00 15:00 23:00 07:00 15:00 23:00 Intake Total 480 ml Balance 480 ml Intake Oral 480 ml Objective Remarks GENERAL: NAD, A&Ox3 HEAD: Normocephalic. NECK: Supple, trachea midline. No lymphadenopathy. EYES: No scleral icterus. No injection or drainage. CARDIOVASCULAR: Regular rate and rhythm without murmurs, gallops, or rubs. RESPIRATORY: Breath sounds equal bilaterally. No accessory muscle use. GASTROINTESTINAL: Abdomen soft, non-tender, nondistended. MUSCULOSKELETAL: No cyanosis, or edema. SKIN: Warm and dry. NEURO: No focal neurological deficitis. A/P Problem List: (1) Brief psychotic disorder ICD Code: F23 - Brief psychotic disorder Assessment and Plan Assessment and Plan 31-year-old male admitted secondary to psychosis Brief psychotic disorder Negative PASTORA Negative RPR Negative ESR B12 normal No vitamin D deficiency TSH within normal limits HIV screening negative MRI of brain negative No further workup at this time Cardiomyopathy Chronic Asymptomatic EF of 45-50% Continue Coreg Continue lisinopril No further changes to management plan Discharge planning Discharge and Coreg and lisinopril Outpatient follow-up with primary care physician Medically clear for discharge when cleared by psychiatry Will sign off at this time Uriel Mckeon MD May 20, 2017 10:52
--- NOTE | 2017-05-20 13:41 | PD.TTN ---
Patient Problems 1. Discharge planning 2. Medication compliance 3. Knowledge deficit 4. Lack of coping skills Progress Toward Goals Provider Present: Dr. Jocelyn Stoll Provider Input: Pt will be evaluated medically and will have first psychotic break work up. An antipsychotic will be added once he has been medically evaluated as well. 05/20- Met with pt parents to discuss treatment and moving forward. It is appears as if this may be his first psychotic break and possible Schizophrenia. He has been refusing oral medication. He will likely be placed on Haldol and then the long acting injection form. Nurse(s) Present: Gab Pena, RN Nurse(s) Input: Pt appears somewhat less psychotic, delusional, paranoid, grandiose and requiring ETOs due to aggressive behavior including throwing chairs. Psychiatric Counselors Present: NELSON Israel Psych Therapist Input: Pt appears labile, delusional, religiously preoccupied, uncooperative and disorganized. Pt struggles to remain on topic and expresses delusional content. He has been compliant with medication regiment but reports he does not feel that he needs to be. He presents with limited insight into condition and need for care as he does not feel he has any mental illlness. Coping and emotional regulation skills appear limited at this time. 05/20- Pt appears easily agitated, psychotic, delusional, paranoid and religiously preoccupied. He was observed to be attempting to break phone off of wall and threatening towards psychiatrist. He presents with limited insight into condition and need for care. He presents with limited coping and emotional regulation skills as evidenced by outbursts. He has been noncompliant with medication regiment. Group Spec/RT/OT/NEGRETE Present: MACHO Garcia, PENELOPE Ott Group Spec/RT/OT/NEGRETE Input: Pt came to spirituality group yesterday but was unable to tolerate and appeared labile. 05/20- MACHO Garcia Pt attends but cannot tolerate group and often leaves early. Discharge Plan SMA Discharge plan will be evaluated and formulated as pt progresses on unit. Documentation Scribe: NELSON Israel Jonathan LMHC May 20, 2017 13:41
[2017-05-20] MEDS ORDERED: LORazepam 2 MG/ML VIAL IM PRN (14:15)
[2017-05-20] MEDS: REMOVE OLD NICOTINE PATCH T-DERMAL SCH (20:25)
[2017-05-20] MEDS: HALOPERIDOL 10 MG TAB PO SCH (20:25)
[2017-05-20] MEDS: LORazepam 1 MG TAB PO PRN (21:16)
[2017-05-21 05:54] VITALS: BP 115/58; PULSE 81; RESP 18; TEMP 98; O2SAT 96
[2017-05-21] MEDS ORDERED: MENTHOL LOZENGE BUCCAL PRN (07:15)
[2017-05-21] MEDS: HALOPERIDOL 10 MG TAB PO SCH ×2 (08:00→20:13)
[2017-05-21] MEDS: DIVALPROEX DR 500 MG TABEC PO SCH ×2 (08:00→20:13)
[2017-05-21] MEDS: CARVEDILOL 3.125 MG TAB PO SCH ×2 (08:00→20:13)
[2017-05-21] MEDS: LISINOPRIL 5 MG TAB PO SCH (08:01)
[2017-05-21] MEDS: NICOTINE 21 MG/24 HR PATCH T-DERMAL SCH (08:01)
--- NOTE | 2017-05-21 11:01 | HHI.PYPN ---
Subjective Chief Complaint: Psychosis Remarks Patient seen and examined with counselor and nurse. Chart reviewed. Case discussed with counselor and nurse. On my examination today, patient makes a great effort to present well. He apologizes for his behavior yesterday and expresses willingness to take medications and verbalizes some insight, I suspect pseudo-insight, into his condition. Speech remains pressured, and he is noted to be somewhat disinhibited on the unit. He denies SI/HI. Although parents are acting as HCS, I have reviewed the side effect profile of medications with patient. He does complain of some dry mouth but otherwise denies side effects from medications. No other physical complaints. Review of Systems ROS Limitations: Poor Historian Except as stated in HPI: all other systems reviewed are Neg Mental Status Examination Appearance: Disheveled (grooming improved today) Consciousness: Alert Orientation: Person, Place (at least) Motor Activity: Other (no hand tremor, no cogwheeling, no dystonia, no dyskinesia, no other motor abnormalities noted) Speech: Pressured (perhaps a little less today) Language: Adequate Fund of Knowledge: Adequate Attention and Concentration: Easily Distracted (perhaps a little more focused today) Memory: Unremarkable Mood: Manic Affect: Labile (lessening) Thought Process & Associations: Circumstantial Thought Content: Bizarre thinking, Delusional Hallucination Type: None Delusion Type: Other (restorationist/grandiose, perhaps decreasing) Suicidal Ideation: No (unreliable to contract for safety) Homicidal Ideation: No (unreliable to contract for safety) Insight: Poor Judgment: Poor Results Labs Labs reviewed. No new labs. Vitals/IOs Vital Signs Date Time Temp Pulse Resp B/P (MAP) Pulse Ox O2 Delivery O2 Flow Rate FiO2 05/21/17 05:54 98.0 81 18 115/58 (77) 96 Assessment & Plan Problem List: (1) Brief psychotic disorder ICD Codes: F23 - Brief psychotic disorder (2) Cannabis abuse ICD Codes: F12.10 - Cannabis abuse, uncomplicated Assessment & Plan Continue Haldol 10mg BID and Depakote 500mg BID as ordered for now. To consider further titration of Haldol if psychotic symptoms become more evident. Plan for long-acting injectable antipsychotic. Patient has accepted 4 consecutive doses of Depakote, and we will plan to check a Depakote and ammonia level after approximately 4 days of continuous adherence and adjust the dose based on the level and patient's clinical presentation at that time. Biotene and hydration for dry mouth. Continue to monitor on high acuity unit. Continue other medications and care as ordered. Justification for Cont. Inpt. Resolving impairments in reality construction. High risk for decompensation in less restrictive environment. Discharge Planning Pending psychiatric stabilization. Case discussed with counselor. Request HC Surrog/Guard Advoc?: Yes David Stoll MD May 21, 2017 11:01
[2017-05-21 17:04] VITALS: BP 134/72; PULSE 69; RESP 18; TEMP 97.3; O2SAT 100
[2017-05-21] MEDS: REMOVE OLD NICOTINE PATCH T-DERMAL SCH (20:18)
[2017-05-22 06:08] VITALS: BP 111/58; PULSE 80; RESP 16; TEMP 97.4; O2SAT 16; O2SAT 99
[2017-05-22] MEDS: CARVEDILOL 3.125 MG TAB PO SCH ×2 (09:00→20:49)
[2017-05-22] MEDS: LISINOPRIL 5 MG TAB PO SCH (09:00)
[2017-05-22] MEDS: DIVALPROEX DR 500 MG TABEC PO SCH ×2 (09:00→20:49)
[2017-05-22] MEDS: NICOTINE 21 MG/24 HR PATCH T-DERMAL SCH (09:00)
[2017-05-22] MEDS: HALOPERIDOL 10 MG TAB PO SCH ×2 (09:00→20:49)
--- NOTE | 2017-05-22 12:16 | HHI.PYPN ---
Subjective Chief Complaint: Psychosis Remarks Patient seen and case discussed with nursing staff. Chart reviewed. Per nursing staff, patient remains grandiose and fully believes that he is going to be discharged by the court today. Patient quite petulant and childlike today. For example, when the diving judge expresses hope that the patient will take his treatment seriously, patient flippantly replies "yep, nope, can't. Sorry." When he returned to the unit, nurse tells me that patient refused all medications and threatened not to eat until he is discharged. No evidence side effects from medications. No physical complaints. Review of Systems ROS Limitations: Psychotic, Poor Historian Except as stated in HPI: all other systems reviewed are Neg Mental Status Examination Appearance: Other (fair) Consciousness: Alert Orientation: Person, Place (at least) Motor Activity: Other (no motor abnormalities noted) Speech: Unremarkable Language: Adequate Fund of Knowledge: Adequate Attention and Concentration: Other (fair at best) Memory: Unremarkable Mood: Oppositional Affect: Irritable (childlike) Thought Process & Associations: Circumstantial Thought Content: Bizarre thinking, Delusional Hallucination Type: None Delusion Type: Other (suspect ongoing grandiose delusions) Suicidal Ideation: No (no SI voiced) Homicidal Ideation: No (no HI voiced) Insight: Poor Judgment: Poor Results Labs Labs reviewed. No new labs. Vitals/IOs Vital Signs Date Time Temp Pulse Resp B/P (MAP) Pulse Ox O2 Delivery O2 Flow Rate FiO2 05/22/17 06:08 97.4 80 16 111/58 (75) 16 Assessment & Plan Problem List: (1) Brief psychotic disorder ICD Codes: F23 - Brief psychotic disorder (2) Cannabis abuse ICD Codes: F12.10 - Cannabis abuse, uncomplicated Assessment & Plan Titrate Haldol to 10mg/5mg/10mg to target psychotic symptoms. Encourage adherence with Depakote. Monitor oral intake. I will hold off on ordering I&O and weights until we see if patient really carries through on his threat not to eat; I do not want to over-attend to this possible issue and in so doing exacerbate it. Patient does have a childhood history of ODD per parents, and we may be seeing some of this pathology through the lens of his psychotic illness. Continue to monitor on the inpatient unit. Continue other medications and care as ordered. Patient's case was presented to the [employer] [place] and placed in continuance for 2 weeks with his father to serve as healthcare surrogate. Justification for Cont. Inpt. Impairment in reality construction. Impairment in self-care. Med changes. High risk for decompensation in less restrictive environment. Discharge Planning Pending psychiatric stabilization. Request HC Surrog/Guard Advoc?: Yes David Stoll MD May 22, 2017 12:16
[2017-05-22] MEDS ORDERED: HALOPERIDOL LACTATE 5 MG/ML AMP IM PRN (14:45)
[2017-05-22] MEDS: HALOPERIDOL 5 MG TAB PO SCH (15:00)
[2017-05-22 18:20] VITALS: BP 133/67; PULSE 74; RESP 18; TEMP 98; O2SAT 100
[2017-05-22] MEDS: REMOVE OLD NICOTINE PATCH T-DERMAL SCH (21:00)
[2017-05-23 05:53] VITALS: BP 94/55; PULSE 85; RESP 16; TEMP 97.7; O2SAT 98
[2017-05-23] MEDS: NICOTINE 21 MG/24 HR PATCH T-DERMAL SCH ×2 (09:00→12:15)
[2017-05-23] MEDS: HALOPERIDOL 10 MG TAB PO SCH ×2 (09:05→20:33)
[2017-05-23] MEDS: LISINOPRIL 5 MG TAB PO SCH (09:05)
[2017-05-23] MEDS: CARVEDILOL 3.125 MG TAB PO SCH ×2 (09:05→20:33)
[2017-05-23] MEDS: DIVALPROEX DR 500 MG TABEC PO SCH ×2 (09:06→20:33)
--- NOTE | 2017-05-23 10:41 | HHI.PYPN ---
Subjective Chief Complaint: Psychosis Remarks Patient seen and examined with counselor and nurse. Chart reviewed. Case discussed in treatment team. Threatened hunger strike was short-lived, and patient has taken all of his meals so far today. On my exam, the patient has returned to making a concerted effort to remain calm and present well during interview. He has a somewhat intense stare and his speech remains a little rapid, although this is slowing to an approximately appropriate rate. He denies AVH. No SI/HI. Oppositional/defiant behavior remains unchanged. Denies side effects from medications. No physical complaints. Review of Systems ROS Limitations: Poor Historian Except as stated in HPI: all other systems reviewed are Neg Mental Status Examination Appearance: Other (fair) Consciousness: Alert Orientation: Person, Place Motor Activity: Other (No motoric abnormalities appreciated.) Speech: Unremarkable Language: Adequate Fund of Knowledge: Adequate Attention and Concentration: Other (fair) Memory: Unremarkable Mood: Oppositional Affect: Blunt (somewhat childlike) Thought Process & Associations: Circumstantial Thought Content: Appropriate, Delusional Hallucination Type: None Delusion Type: None Suicidal Ideation: No (No SI) Homicidal Ideation: No (No HI) Insight: Poor Judgment: Poor Results Labs Labs reviewed. No new labs. Vitals/IOs Vital Signs Date Time Temp Pulse Resp B/P (MAP) Pulse Ox O2 Delivery O2 Flow Rate FiO2 05/23/17 05:53 97.7 85 16 94/55 (68) 98 Assessment & Plan Problem List: (1) Brief psychotic disorder ICD Codes: F23 - Brief psychotic disorder (2) Cannabis abuse ICD Codes: F12.10 - Cannabis abuse, uncomplicated Assessment & Plan Adequate response to Haldol with respect to psychosis. Oppositional behaviors are likely characterological and are unlikely to improve on the inpatient unit. I will initiate Haldol Decanoate as I do suspect primary psychotic illness and also suspect that he will not be adherent with psychotropics after discharge. I will plan to administer ~10x the total oral daily dose, or 250mg IM. I will give Haldol Dec 100mg IM now with plans to give the balance of the dose next week. Continue oral Haldol supplementation. Continue Depakote as ordered, and I will check a Depakote and ammonia level tomorrow morning. OT eval. Continue other medications and care as ordered. Justification for Cont. Inpt. Med changes. Resolving impairments in reality construction. Risk for decompensation in less restrictive environment. Discharge Planning Pending psychiatric stabilization. Possible discharge middle of next week. Case discussed with counselor. Request HC Surrog/Guard Advoc?: Yes David Stoll MD May 23, 2017 10:41
--- NOTE | 2017-05-23 12:42 | PD.TTN ---
Patient Problems 1. Discharge planning 2. Medication compliance 3. Knowledge deficit 4. Lack of coping skills Progress Toward Goals Provider Present: Dr. Jocelyn Stoll Provider Input: Pt will be evaluated medically and will have first psychotic break work up. An antipsychotic will be added once he has been medically evaluated as well. 05/20- Met with pt parents to discuss treatment and moving forward. It is appears as if this may be his first psychotic break and possible Schizophrenia. He has been refusing oral medication. He will likely be placed on Haldol and then the long acting injection form. 05/23- Pt has been refusing medication, refusing to eat and appears psychotic. He will be considered for a long acting injection. Nurse(s) Present: Gab Pena RN Nurse(s) Input: Pt appears somewhat less psychotic, delusional, paranoid, grandiose and requiring ETOs due to aggressive behavior including throwing chairs. 05/23- Dhara Lacey RN Pt has been refusing food, has not been taking his medication and appears angry, withdrawn and guarded. Psychiatric Counselors Present: Hamzah Maravilla [facility] Psych Therapist Input: Pt appears labile, delusional, religiously preoccupied, uncooperative and disorganized. Pt struggles to remain on topic and expresses delusional content. He has been compliant with medication regiment but reports he does not feel that he needs to be. He presents with limited insight into condition and need for care as he does not feel he has any mental illlness. Coping and emotional regulation skills appear limited at this time. 05/20- Pt appears easily agitated, psychotic, delusional, paranoid and religiously preoccupied. He was observed to be attempting to break phone off of wall and threatening towards psychiatrist. He presents with limited insight into condition and need for care. He presents with limited coping and emotional regulation skills as evidenced by outbursts. He has been noncompliant with medication regiment. 05/23- Pt continues to appear psychotic and delusional though it is evident that there is also an element of personality disorder to his presentation. He remains mixed in his compliance with medication regiment and commitment to treatment. He has poor insight into condition and need for care. Pt struggles with coping and emotional regulation skills as evidenced by ongoing outbursts. Group Spec/RT/OT/NEGRETE Present: MACHO Garcia, PENELOPE Ott Group Spec/RT/OT/NEGRETE Input: Pt came to spirituality group yesterday but was unable to tolerate and appeared labile. 05/20- MACHO Garcia Pt attends but cannot tolerate group and often leaves early. 05/23- PENELOPE Ott Pt attends select groups and is often hyper. He appears labile at times and discharge focused. Discharge Plan SMA Discharge plan will be evaluated and formulated as pt progresses on unit. Documentation Scribe: NELSON Israel Jonathan LMHC May 23, 2017 12:42
[2017-05-23] MEDS ORDERED: HALOPERIDOL DECANOATE 50 MG/ML VIAL IM SCH (14:30)
[2017-05-23] MEDS: HALOPERIDOL 5 MG TAB PO SCH (14:49)
[2017-05-23 18:01] VITALS: BP 121/60; PULSE 88; RESP 18; TEMP 98.6; O2SAT 99
[2017-05-23] MEDS: REMOVE OLD NICOTINE PATCH T-DERMAL SCH (20:34)
[2017-05-24 07:03] VITALS: BP 102/60; PULSE 73; RESP 17; TEMP 97.2; O2SAT 100
[2017-05-24] MEDS: CARVEDILOL 3.125 MG TAB PO SCH ×2 (08:06→20:47)
[2017-05-24] MEDS: DIVALPROEX DR 500 MG TABEC PO SCH ×2 (08:06→20:47)
[2017-05-24] MEDS: LISINOPRIL 5 MG TAB PO SCH (08:06)
[2017-05-24] MEDS: HALOPERIDOL 10 MG TAB PO SCH ×2 (08:06→20:47)
[2017-05-24] MEDS: NICOTINE 21 MG/24 HR PATCH T-DERMAL SCH (09:00)
[2017-05-24] MEDS: HALOPERIDOL 5 MG TAB PO SCH (13:56)
--- NOTE | 2017-05-24 16:47 | HHI.PYPN ---
Subjective Chief Complaint: Psychosis Remarks Patient was seen and case discussed with nursing. Patient is behaving well per nursing. Compliant with medications. He remains opinionated but no longer perseverative on various topics. Looking forward to reading is [employer]. No outbursts. Denies suicidal or homicidal ideation intent or plan. No psychosis noted Mental Status Examination Appearance: Other (fair) Consciousness: Alert Orientation: Person, Place Motor Activity: Other (No motoric abnormalities appreciated.) Speech: Unremarkable Language: Adequate Fund of Knowledge: Adequate Attention and Concentration: Other (fair) Memory: Unremarkable Mood: Oppositional Affect: Appropriate Thought Process & Associations: Circumstantial Thought Content: Appropriate, Delusional Hallucination Type: None Delusion Type: None Suicidal Ideation: No (No SI) Suicidal Plan: No Suicidal Intention: No Homicidal Ideation: No (No HI) Homicidal Plan: No Homicidal Intention: No Insight: Poor Judgment: Poor Results Labs Test 05/24/17 10:57 Ammonia 52 MCMOL/L Valproic Acid (Depakene) Level 59 MCG/ML Vitals/IOs Vital Signs Date Time Temp Pulse Resp B/P (MAP) Pulse Ox O2 Delivery O2 Flow Rate FiO2 05/24/17 07:03 97.2 73 17 102/60 (74) 100 Assessment & Plan Problem List: (1) Brief psychotic disorder ICD Codes: F23 - Brief psychotic disorder (2) Cannabis abuse ICD Codes: F12.10 - Cannabis abuse, uncomplicated Assessment & Plan Continue current treatment plan Justification for Cont. Inpt. Patient will decompensate in a less restrictive setting Request HC Surrog/Guard Advoc?: Yes Jewel Gr DO May 24, 2017 16:47
[2017-05-24 17:28] VITALS: BP 117/75; PULSE 75; RESP 16; TEMP 98.5; O2SAT 98
[2017-05-24] MEDS: REMOVE OLD NICOTINE PATCH T-DERMAL SCH (20:13)
[2017-05-25 06:08] VITALS: BP 108/51; PULSE 75; RESP 17; TEMP 97.4; O2SAT 99
[2017-05-25] MEDS: NICOTINE 21 MG/24 HR PATCH T-DERMAL SCH (09:00)
[2017-05-25] MEDS: HALOPERIDOL 10 MG TAB PO SCH ×2 (09:39→20:40)
[2017-05-25] MEDS: DIVALPROEX DR 500 MG TABEC PO SCH ×2 (09:39→20:40)
[2017-05-25] MEDS: LISINOPRIL 5 MG TAB PO SCH (09:40)
[2017-05-25] MEDS: CARVEDILOL 3.125 MG TAB PO SCH ×2 (09:40→20:40)
--- NOTE | 2017-05-25 13:24 | HHI.PYPN ---
Subjective Chief Complaint: Psychosis Remarks Patient was seen and case discussed with nursing. Patient remains on good behavior. He hasn't had any outbursts. Appears less perseverative. Says he had a productive conversation with his mom. Insight remains poor. Compliant with medications Mental Status Examination Appearance: Other (fair) Consciousness: Alert Orientation: Person, Place Motor Activity: Other (No motoric abnormalities appreciated.) Speech: Unremarkable Language: Adequate Fund of Knowledge: Adequate Attention and Concentration: Other (fair) Memory: Unremarkable Mood: Oppositional Affect: Appropriate Thought Process & Associations: Circumstantial Thought Content: Appropriate, Delusional Hallucination Type: None Delusion Type: None Suicidal Ideation: No (No SI) Suicidal Plan: No Suicidal Intention: No Homicidal Ideation: No (No HI) Homicidal Plan: No Homicidal Intention: No Insight: Poor Judgment: Poor Results Vitals/IOs Vital Signs Date Time Temp Pulse Resp B/P (MAP) Pulse Ox O2 Delivery O2 Flow Rate FiO2 05/25/17 06:08 97.4 75 17 108/51 (70) 99 Assessment & Plan Problem List: (1) Brief psychotic disorder ICD Codes: F23 - Brief psychotic disorder (2) Cannabis abuse ICD Codes: F12.10 - Cannabis abuse, uncomplicated Assessment & Plan Continue current treatment plan Justification for Cont. Inpt. Patient will decompensate in a less restrictive setting Request HC Surrog/Guard Advoc?: Yes Jewel Gr DO May 25, 2017 13:24
[2017-05-25] MEDS: HALOPERIDOL 5 MG TAB PO SCH (14:16)
[2017-05-25] MEDS: diphenhydrAMINE HCL 50 MG CAP - HS PRN PO (20:40)
[2017-05-25] MEDS: LORazepam 1 MG TAB PO PRN (20:40)
[2017-05-26 06:10] VITALS: BP 100/60; PULSE 81; RESP 18; TEMP 97.7; O2SAT 94
[2017-05-26] MEDS: HALOPERIDOL 10 MG TAB PO SCH ×2 (08:23→20:48)
[2017-05-26] MEDS: CARVEDILOL 3.125 MG TAB PO SCH ×2 (08:23→20:48)
[2017-05-26] MEDS: LISINOPRIL 5 MG TAB PO SCH (08:24)
[2017-05-26] MEDS: DIVALPROEX DR 500 MG TABEC PO SCH ×2 (08:24→20:48)
--- NOTE | 2017-05-26 10:48 | HHI.PYPN ---
Subjective Chief Complaint: Psychosis Remarks Patient seen and examined with tech. Chart reviewed. Case discussed with nursing staff. Patient no behavioral issues overnight and plan is for transition to lower acuity unit today. On my examination today, the patient remains discharge focused. He continues to exhibit some oppositional/defiant traits, but these seem less pronounced today. He says that his visit with family over the weekend went well. He denies any SI or HI. Denies any AVH. I can elicit no delusional material today. Denies side effects from medications. I discussed plan for booster dose of Haldol Decanoate tomorrow and possible discharge thereafter. No physical complaints. Review of Systems Except as stated in HPI: all other systems reviewed are Neg Mental Status Examination Appearance: Appropriate Consciousness: Alert Orientation: Person, Place (at least) Motor Activity: Other (no abnormal motor movements noted) Speech: Unremarkable Language: Adequate Fund of Knowledge: Adequate Attention and Concentration: Other (fair) Memory: Unremarkable Mood: Oppositional Affect: Appropriate Thought Process & Associations: Logical, Linear, Other (somewhat perseverative on discharge) Thought Content: Appropriate Hallucination Type: None Delusion Type: None Suicidal Ideation: No Suicidal Plan: No Suicidal Intention: No Homicidal Ideation: No Homicidal Plan: No Homicidal Intention: No Insight: Poor Judgment: Poor Results Labs Labs reviewed. Mild hyperammonemia noted. Depakote level within the therapeutic range at 59. Vitals/IOs Vital Signs Date Time Temp Pulse Resp B/P (MAP) Pulse Ox O2 Delivery O2 Flow Rate FiO2 05/26/17 06:10 97.7 81 18 100/60 (73) 94 Assessment & Plan Problem List: (1) Brief psychotic disorder ICD Codes: F23 - Brief psychotic disorder (2) Cannabis abuse ICD Codes: F12.10 - Cannabis abuse, uncomplicated Assessment & Plan Patient is tolerating Haldol/Depakote regimen well, and this combination appears to have resulted in significant improvement in his presenting psychosis. Plan to administer balance of Haldol Decanoate tomorrow, 150mg IM. Add Carnitor for hyperammonemia although there is no evidence of hyperammonemic encephalopathy in this patient at this time. Continue Depakote as ordered. Continue to monitor on the inpatient unit. Continue other medications and care as ordered. Justification for Cont. Inpt. med changes. Final discharge planning. Discharge Planning Possible discharge tomorrow, Friday. Request HC Surrog/Guard Advoc?: Yes David Stoll MD May 26, 2017 10:48
[2017-05-26] MEDS: levOCARNitine 10% ORAL SOLN 118 ML BTL PO SCH ×2 (13:00→17:12)
[2017-05-26] MEDS: HALOPERIDOL 5 MG TAB PO SCH (15:00)
[2017-05-26 17:54] VITALS: BP 104/63; PULSE 74; RESP 18; TEMP 97.9; O2SAT 98
[2017-05-27 06:18] VITALS: BP 105/57; PULSE 81; RESP 21; TEMP 97.4; O2SAT 100
[2017-05-27] MEDS ORDERED: HALOPERIDOL DECANOATE 50 MG/ML VIAL IM SCH ×2 (09:00→14:00)
[2017-05-27] MEDS: CARVEDILOL 3.125 MG TAB PO SCH (09:45)
[2017-05-27] MEDS: DIVALPROEX DR 500 MG TABEC PO SCH (09:45)
[2017-05-27] MEDS: LISINOPRIL 5 MG TAB PO SCH (09:45)
[2017-05-27] MEDS: levOCARNitine 10% ORAL SOLN 118 ML BTL PO SCH ×2 (09:45→12:02)
[2017-05-27] MEDS: HALOPERIDOL 10 MG TAB PO SCH (09:45)
--- NOTE | 2017-05-27 10:15 | PD.TTN ---
Patient Problems 1. Discharge planning 2. Medication compliance 3. Knowledge deficit 4. Lack of coping skills Progress Toward Goals Provider Present: Dr. Jocelyn Stoll Provider Input: Pt will be evaluated medically and will have first psychotic break work up. An antipsychotic will be added once he has been medically evaluated as well. 05/20- Met with pt parents to discuss treatment and moving forward. It is appears as if this may be his first psychotic break and possible Schizophrenia. He has been refusing oral medication. He will likely be placed on Haldol and then the long acting injection form. 05/23- Pt has been refusing medication, refusing to eat and appears psychotic. He will be considered for a long acting injection. 05/27/17 Patient doing well. Patient is ready for discharge. Nurse(s) Present: Gab Pena RN Nurse(s) Input: Pt appears somewhat less psychotic, delusional, paranoid, grandiose and requiring ETOs due to aggressive behavior including throwing chairs. 05/23- Dhara Lacey RN Pt has been refusing food, has not been taking his medication and appears angry, withdrawn and guarded. 05/27/17 Patient's nurse Su reports patient is doing well. Medication compliant, cooperative. Psychiatric Counselors Present: Hamzah Maravilla [facility], Annalee Rodríguez [facility] Psych Therapist Input: Pt appears labile, delusional, religiously preoccupied, uncooperative and disorganized. Pt struggles to remain on topic and expresses delusional content. He has been compliant with medication regiment but reports he does not feel that he needs to be. He presents with limited insight into condition and need for care as he does not feel he has any mental illlness. Coping and emotional regulation skills appear limited at this time. 05/20- Pt appears easily agitated, psychotic, delusional, paranoid and religiously preoccupied. He was observed to be attempting to break phone off of wall and threatening towards psychiatrist. He presents with limited insight into condition and need for care. He presents with limited coping and emotional regulation skills as evidenced by outbursts. He has been noncompliant with medication regiment. 05/23- Pt continues to appear psychotic and delusional though it is evident that there is also an element of personality disorder to his presentation. He remains mixed in his compliance with medication regiment and commitment to treatment. He has poor insight into condition and need for care. Pt struggles with coping and emotional regulation skills as evidenced by ongoing outbursts. 05/27/17 Patient presented pleasant, cooperative, affect appropriate. Denies suicidal and homicidal ideation. Patient is being discharged today. Patient reports being happy about going home. Will set patient up with psychiatric follow up with [facility] [phone]. Group Spec/RT/OT/NEGRETE Present: MACHO Garcia, PENELOPE Ott Group Spec/RT/OT/NEGRETE Input: Pt came to spirituality group yesterday but was unable to tolerate and appeared labile. 05/20- MACHO Garcia Pt attends but cannot tolerate group and often leaves early. 05/23- PENELOPE Ott Pt attends select groups and is often hyper. He appears labile at times and discharge focused. 05/27/17 Patient attends 75% of groups, patient actively participates. Discharge Plan SMA Discharge plan will be evaluated and formulated as pt progresses on unit. Documentation Scribe: Hamzah Maravilla, Annalee Maurre [facility] May 27, 2017 10:15
[2017-05-27] MEDS ORDERED: HALO100P IM (13:01)
[2017-05-27] MEDS ORDERED: DIVA500T PO (13:01)
[2017-05-27] MEDS ORDERED: LEVO10%S PO (13:01)
[2017-05-27] MEDS ORDERED: HALO5TAB PO (13:01)
--- NOTE | 2017-05-27 13:01 | HHI.DS ---
Psychiatry Discharge Summary Inpatient Psychiatric care?: Yes Advance Directive: No Reason Not Provided: declined Mental Health AdvanceDirective: No Health Care Proxy: No Admission Admission Date May 14, 2017 at 23:00 Admission Diagnosis: (1) Brief psychotic disorder ICD Code: F23 - Brief psychotic disorder (2) Cannabis abuse ICD Code: F12.10 - Cannabis abuse, uncomplicated Brief History Mr. Guillaume is a 31-year-old male with a reported history of ADHD who presents in transfer from [facility] under a Pete act. Documentation from outside hospital reviewed. 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 He also allegedly threatened to kill President Charleen. Apparently there was some concern initially that the patient's altered mental status was medical in nature and so it appears he was briefly admitted to the medical floor at [facility], although medical workup there was apparently negative. Reviewing our electronic medical record, it appears this is patient's first visit to [place].Patient seen and examined with nurse. Chart reviewed. Case discussed with nursing staff. On my examination today, the patient presents with pressured speech and loosening of associations. He repeatedly says, "I'm cleared." He says that he has "thought so clear that no one around me could think clearly enough. If you won' t think clear, I'll damn you to Hell!" Affect is labile, and patient grows tearful and when asked why he is crying he says. "I'm sad for everybody else. Their pain and suffering at the hands of fucking demons. No one will listen to me." Patient reports visual hallucinations of demons and auditory hallucinations of "henry voices." He cannot tell me what these voices are saying. Grandiosity is present. He is somewhat intrusive and disinhibited. He denies suicidal or homicidal ideation but seems unreliable to contract for safety. The remainder of the psychiatric ROS is negative. The patient has no physical complaints at this time. The patient is a 31 years old man, domiciled with his parents in [place], single, unemployed, with psychiatric history of ADHD, Cannabis use disorder, denies previous psychiatric hospitalizations, denies suicidal attempts , no significant medical history, who was brought to the hospital on the Pete act due to psychotic speech and behavior. He was consulted to me for second opinion. Chart was reviewed. Case discussed with nurse in charge. As per nurses the patient has been agitated, verbally hostile, even aggressive needing ETO's. On my evaluation the patient is found sitting in the recreational area of the unit, he is calm, a little bit oppositional and irritable. He has a very flat affect and seems to be internally preoccupied and paranoid. Patient says that he needs to remain silence and isolated "because he wants to attack me ". Patient does not clarify who is "he". He also says that "He is mandating". Patient says that he has been smoking that he wanted everyday "to clear my mind". He also says that he voted for "the best president ever, Michael Villaseñor who is cleaning this [place] of [place]". The patient denies suicidal and homicidal ideation, visual and auditory hallucinations. He is partially oriented in time and place. Tobacco Use In Past 30 Days: 5 or More Cigarettes/Day Alcohol Use: Never Hospital Course Patient was admitted to a locked, inpatient psychiatric unit. A general medical and cardiology consultation were obtained for medical clearance for antipsychotic treatment as the patient has a history of cardiac condition. Appropriate precautions were in place throughout patient's hospital stay. Patient was seen and examined on the unit by psychiatry and also visited by counselor. Psychotropic medications were adjusted, and the patient tolerated medications well without side effects. Patient was started on long-acting injectable Haldol Decanoate. Patient had improvement in presenting psychiatric symptomatology during the course of his hospital stay. There was no evidence of any suicidality or homicidality on the inpatient unit. Patient's behavior improved with benefit of psychopharmacologic treatment, although he did continue to exhibit some oppositional traits, and he does have a reported childhood history of oppositional defiant disorder. Collateral was obtained from patient's parents. On the day of discharge: Patient seen and examined with nurse. Chart reviewed. Case discussed in treatment team with counselor and occupational therapist. Case discussed with nursing staff who reports the patient has been no behavioral problem overnight. On my examination today, the patient requests discharge from the inpatient psychiatric unit today. He denies any suicidal or homicidal ideation, intent or plan on direct questioning and contracts for safety. I can elicit no depressive or hypomanic/manic symptoms at this time. He denies any audiovisual hallucinations. I can elicit no delusional material. He denies side effects from medications. I have provided patient with psychoeducation regarding the his discharge medication regimen with particular focus on the need for oral supplementation of his Haldol Decanoate and the need for subsequent Haldol Decanoate injections. In order to promote medication adherence, I will adjust his Haldol to BID dosing on discharge and have discussed this change with the patient. Patient has no physical complaints today. Suicide and violence risk assessment on day of discharge both suggests lower imminent risk, and the patient's level of function is adequate for outpatient care. The patient does not meet criteria for ongoing involuntary psychiatric hospitalization and is requesting discharge today. I will arrange for his discharge home today with psychiatric follow-up as arranged by counselor. Patient is also to follow-up with primary care. I do remain somewhat pessimistic about patient's commitment to adherence with psychotropic medications on discharge, and I have earnestly recommended to him that he remain adherent with psychotropic medications on outpatient basis, as I fear he places himself at risk for relapse to psychosis and rehospitalization if he is not adherent with medications. I have counseled the patient to abstain from substances of abuse and recommended that he pursue chemical dependency evaluation and treatment on an ambulatory basis. I have counseled the patient regarding warning signs for need to return to psychiatric emergency room as part of a general safety plan. Results Blood Pressure 105 / 57 Vital Signs Date Time Temp Pulse Resp B/P (MAP) Pulse Ox O2 Delivery O2 Flow Rate FiO2 05/27/17 06:18 97.4 81 21 105/57 (73) 100 Laboratory Results Test 05/15/17 11:50 05/24/17 10:57 Cholesterol Level 184 MG/DL (120-200) HDL Cholesterol 41.7 MG/DL (40.0-60.0) Hemoglobin A1c 5.1 % (4.3-6.0) LDL Cholesterol 126 MG/DL (0-99) Triglycerides Level 83 MG/DL (42-150) Valproic Acid (Depakene) Level 59 MCG/ML (50-100) Summary of Procedures Echocardiogram: The left ventricular systolic function is mildly reduced with an estimated ejection fraction in the range of 45- 50%. There is global left ventricular dysfunction. Trace mitral valve regurgitation. There is mild tricuspid valve regurgitation. Imaging Last Impressions Wrist X-Ray 05/18/17 1928 Signed Impressions: Service Date/Time: Thursday, May 18, 2017 21:31 - CONCLUSION: No acute disease. Thomas Shepard MD Brain MRI 05/15/17 0000 Signed Impressions: Service Date/Time: May 16:00 - CONCLUSION: 1. No evidence of acute intracranial pathology. No masses are identified. David Garcia MD Pending results at discharge: No Medications # of Antipsychotic meds at D/C: 1 Approp Antipsych med options 1 - Minimum of three failed multiple trials of monotherapy. 2 - Documented plan to taper to monotherapy due to previous use of multiple meds OR cross-taper in progress at D/C. 3 - Documentation of augmentation of Clozapine. 4 - Justification other than those listed in allowable values 1-3, document here : Discharge Discharge Date: May 27, 2017 Discharge Diagnosis: (1) Brief psychotic disorder Diagnosis: Principal (stabilized.) ICD Code: F23 - Brief psychotic disorder (2) Cannabis abuse Diagnosis: Secondary (counseled to quit) ICD Code: F12.10 - Cannabis abuse, uncomplicated Pt Condition on Discharge: Stable Discharge Disposition: Discharge Home Discharge Instructions Diet Instructions: As Tolerated, No Restrictions Activities you can perform: Weight Bearing as Renaldo Scheduled Appointment: [facility] Appointment Date: Jun 13, 2017 Appointment Time: 2:00pm New Orders: AMMONIA - 1 Week DEPAKENE - 1 Week New Medications: Haloperidol (Haloperidol) 5 Mg Tab 12.5 MG PO BID for Mental Health for 15 Days, TAB 1 Refill Continue to take oral Haldol until your next Haldol Decanoate injection, or as directed by your outpatient provider. Haloperidol Decanoate Inj (Haldol Decanoate Inj) 100 Mg/Ml Inj 250 MG IM Q28D for Mental Health, #3 VIAL 0 Refills This dose of Haldol Decanoate is due on 06/20/2017. Lisinopril (Lisinopril) 5 Mg Tab 5 MG PO DAILY for Blood Pressure Management, #30 TAB 0 Refills Carvedilol (Coreg) 3.125 Mg Tab 3.125 MG PO Q12HR for Cardiomyopathy, #[address] (Divalproex DR) 500 Mg Tabdr 500 MG PO BID for Mental Health for 15 Days, #30 TAB 1 Refill Levocarnitine Liq (Carnitor Liq) 1 Gm/10 Ml Soln 3 ML PO TID for Hyperammonemia for 15 Days, ML 1 Refill Discharge Time > 30 minutes Mental Status Examination Appearance: Appropriate (in hospital attire. Well groomed.) Consciousness: Alert Orientation: x4 Motor Activity: Other (no hand tremor, no dystonia, no dyskinesia, no other motor abnormalities noted.) Speech: Unremarkable Language: Adequate Fund of Knowledge: Adequate Attention and Concentration: Adequate Memory: Unremarkable Mood: Appropriate Affect: Appropriate Thought Process & Associations: Intact, Logical, Goal directed, Linear, Other ( somewhat perseverative on discharge) Thought Content: Appropriate Hallucination Type: None Delusion Type: None Suicidal Ideation: No Suicidal Plan: No Suicidal Intention: No Homicidal Ideation: No Homicidal Plan: No Homicidal Intention: No Insight: Fair (fair at best) Judgment: Adequate (fair at best) Discharge/Advance Care Plan Health Problems: (1) Brief psychotic disorder (2) Cannabis abuse Goals to promote your health * To prevent worsening of your condition and complications * To maintain your health at the optimal level Directions to meet your goals Take your medications as prescribed Follow your dietary instruction Follow activity as directed Keep your appointments as scheduled Take your immunizations and boosters as scheduled If your symptoms worsen call your PCP, if no PCP go to Urgent Care Center or Emergency Room For 24/ questions related to your inpatient stay or results of tests pending at discharge, please contact Dr. David Stoll at Smoking is Dangerous to Your Health. Avoid second hand smoking David Stoll MD May 27, 2017 13:01
[2017-05-27] MEDS: HALOPERIDOL 5 MG TAB PO SCH (14:51)
== END 2017-05-27 15:50 | disposition home or self-care (01) | DRG 885 ==
LOC: H270 23:00 → H260 05-26 08:36
PROVIDERS: ADMIT Psychiatry & Neurology Psychiatry; ATTEND Psychiatry & Neurology Psychiatry
DX: F23 Brief psychotic disorder (principal); I42.9 Cardiomyopathy, unspecified; I50.9 Heart failure, unspecified; E72.20 Disorder of urea cycle metabolism, unspecified; F17.210 Nicotine dependence, cigarettes, uncomplicated; F12.10 Cannabis abuse, uncomplicated; F90.9 Attention-deficit hyperactivity disorder, unspecified type; M25.532 Pain in left wrist
CPT/HCPCS: 70551; 73100; 80048; 80061; 80164; 82140; 82607; 82652; 83036; 84443; 85652; 86038; 86592; 86703; 93005; 93306; J1200; J1630; J1631; J2060; Q0163